=== PATIENT | female | born 1985 | race Caucasian/White ===

== ENCOUNTER 2020-03-04 07:35 | Outpatient (REF) | payer OTHER, SELFPAY ==
[2020-03-04 11:39] LABS: Anion Gap 11 (12-20); Blood Urea Nitrogen 11 mg/dL (9-16); Calcium 8.6 mg/dL (8.4-10.2); Carbon Dioxide 25 mmol/L (22-29); Chloride 108 mmol/L (96-108); Estimated Glomerular Filt Rate > 60; Glucose Random 90 mg/dL (60-115); Potassium 4.1 mmol/l (3.3-5.1); Sodium 140 mmol/L (135-145)
[2020-03-06 20:42] LABS: TS Negative Control Passed; TS Panel A 0; TS Panel B 0; TS Positive Control Passed; TSpotTB Negative (SeeBelow)
== END 2020-03-04 07:36 | disposition home or self-care (01) ==
LOC: HO.HMGCLDS 07:35
PROVIDERS: PCP Nurse Practitioner Family; Visit Provider Internal Medicine
DX: B35.3 Tinea pedis (principal); Z11.1 Encounter for screening for respiratory tuberculosis
CPT/HCPCS: 36415; 80048; 86481

== ENCOUNTER 2020-04-28 08:08 | Outpatient (REF) | payer OTHER, SELFPAY ==
[2020-04-29 09:18] LABS: BV Int Neg Control Negative (Negative); BV Int Pos Control Positive (Positive)
[2020-04-29 16:02] LABS: C. trachomatis RNA TMA NOT DETECTED (NOT DETECTED); N. gonorrhoeae RNA TMA NOT DETECTED (NOT DETECTED)
[2020-05-02 12:07] LABS: HPV mRNA E6/E7 rflx Not Detected (Not Detected)
== END 2020-04-28 08:09 | disposition home or self-care (01) ==
LOC: HO.LAB 08:08
PROVIDERS: PCP Nurse Practitioner Family; Visit Provider Obstetrics & Gynecology
DX: N93.9 Abnormal uterine and vaginal bleeding, unspecified (principal); R53.83 Other fatigue; R42 Dizziness and giddiness; N91.2 Amenorrhea, unspecified; Z12.4 Encounter for screening for malignant neoplasm of cervix; Z11.3 Encounter for screening for infections with a predominantly sexual mode of transmission
CPT/HCPCS: 36415; 58100; 87480; 87491; 87510; 87591; 87624; 87660; 88142; 88305; 99202

== ENCOUNTER 2020-05-20 06:48 | Outpatient (REF) | payer OTHER, SELFPAY ==
[2020-05-20 08:17] LABS: MANUAL DIFF FLAG NO
[2020-05-20 08:36] LABS: Basophils Percent Auto 0.3 % (0-2); Eosinophils Absolute Auto 0.1 X10*3/uL (0.0-0.4); Eosinophils Percent Auto 1.7 % (0-4); Hematocrit 43.3 % (37-47); Hemoglobin 14.4 g/dl (12.0-16.0); Imm Gran Abs Auto 0.01 X10*3/uL (0.00-0.03); Imm Gran Pct Auto 0.2 % (0.0-0.4); Lymphocytes Absolute Auto 1.8 X10*3/uL (1.2-4.9); Lymphocytes Percent Auto 28.2 % (20-40); Mean Corpuscular HGB Conc 33.3 g/dl (31.0-35.0); Mean Corpuscular Hemoglobin 29.7 pg (27.0-33.0); Mean Corpuscular Volume 89.3 fL (80-98); Mean Platelet Volume 11.7 fL (9.4-12.3); Monocytes Absolute Auto 0.5 X10*3/uL (0.1-1.2); Monocytes Percent Auto 7.6 % (2-11); Platelet Count 255 X10*3/uL (160-400); Red Blood Count 4.85 X10*6/uL (4.20-5.50); Red Cell Distribution Width 12.5 % (11.0-16.0); White Blood Count 6.5 X10*3/uL (4.8-10.8)
[2020-05-20 09:07] LABS: TSH reflex Free T4 3.51 uIU/mL (0.32-4.0)
[2020-05-21 07:02] LABS: Follicle Stimulating Hormone 7.9 mIU/mL; Prolactin 20.5 ng/mL
[2020-05-21 09:45] LABS: CT PCR NOT DETECTED (Not Detect.); NG PCR NOT DETECTED (Not Detect.)
[2020-05-22 17:51] LABS: TS Negative Control Passed; TS Panel A 0; TS Panel B 0; TS Positive Control Passed; TSpotTB Negative (SeeBelow)
== END 2020-05-20 06:49 | disposition home or self-care (01) ==
LOC: HO.LAB 06:48
PROVIDERS: Internal Medicine; PCP Nurse Practitioner Family; Visit Provider Obstetrics & Gynecology
DX: N93.9 Abnormal uterine and vaginal bleeding, unspecified (principal); N91.2 Amenorrhea, unspecified; Z11.1 Encounter for screening for respiratory tuberculosis; Z11.3 Encounter for screening for infections with a predominantly sexual mode of transmission
CPT/HCPCS: 36415; 83001; 84146; 84443; 85025; 86481; 87491; 87591

== ENCOUNTER → 2020-05-26 12:01 | Outpatient (BNVA) | payer OTHER, SELFPAY | PROVIDERS: Visit Provider Obstetrics & Gynecology | DX: N93.9 Abnormal uterine and vaginal bleeding, unspecified (principal); Z12.4 Encounter for screening for malignant neoplasm of cervix; N91.2 Amenorrhea, unspecified; Z11.3 Encounter for screening for infections with a predominantly sexual mode of transmission; Z30.09 Encounter for other general counseling and advice on contraception | CPT/HCPCS: 99212 ==

== ENCOUNTER 2020-05-30 17:46 | Emergency (ER) | payer OTHER, SELFPAY ==
--- NOTE | ~2020-05-30 | CT_ITS ---
EXAMINATION: CT CERVICAL SPINE WITHOUT CONTRAST CLINICAL INFORMATION: Head trauma COMPARISON: None TECHNIQUE: Cervical spine was performed with reconstruction imaging performed at the acquisition workstation. This CT examination was performed using dose optimization techniques as appropriate, variously including the following: *Automated exposure control *Adjustment of mA and/or kV according to patient size (this includes techniques or standardized protocols for targeted exams where dose is matched to indication/reason for exam; i.e. extremities or head) *Use of iterative reconstruction technique DLP: 835 mGy-cm FINDINGS: There is slight reversal of usual cervical lordosis which is likely related to positioning. The vertebral bodies otherwise normally aligned There is no fracture or degenerative change. The surrounding soft tissues are normal. CT/CT cervical spine wo con IMPRESSION: Unremarkable examination.
--- NOTE | ~2020-05-30 | CT_ITS ---
EXAMINATION: CT HEAD WITHOUT CONTRAST CLINICAL INFORMATION: Head trauma COMPARISON: None TECHNIQUE: Contiguous axial imaging was performed from the skull base to vertex without intravenous administration of contrast. This CT examination was performed using dose optimization techniques as appropriate, variously including the following: *Automated exposure control *Adjustment of mA and/or kV according to patient size (this includes techniques or standardized protocols for targeted exams where dose is matched to indication/reason for exam; i.e. extremities or head) *Use of iterative reconstruction technique DLP: 833 mGy-cm FINDINGS: CT HEAD: There is no evidence of acute intracranial hemorrhage or territorial infarction. No abnormal mass effect or midline shift is seen. Barroso to white matter differentiation is well preserved. No extra-axial fluid collections are identified. The ventricles are normal in size. There is no abnormal attenuation within the brain parenchyma. The osseous structures and soft tissues are normal. The mastoid air cells and visualized portions of the paranasal sinuses are well aerated. CT cervical spine: CT/CT head/brain wo con IMPRESSION: No acute intracranial pathology.
[2020-05-30 17:49] VITALS: BP 128/67; PULSE 78; RESP 17; TEMP 36.7; O2SAT 97; BMI 43.4
--- NOTE | 2020-05-30 18:33 | ED_ITS ---
HPI - Fall General Chief Complaint: Fall Stated Complaint: fall - head injury Source: patient Mode of arrival: ambulatory Limitations: no limitations History of Present Illness HPI Narrative: 34-year-old female past medical history obesity, menorrhagia, and allergies presents with injury sustained with from fall. Patient was wrestling with her son, fell backwards and hit the back of her head directly onto the lidya or. She states that she is having a difficult time opening and closing her jaw, has a headache and ear pain and describes no other symptoms. She denies loss of consciousness, dizziness, lightheadedness, changes in vision, nausea, vomiting, loss of balance, weakness, chest pain or pressure, palpitations, shortness breath, and edema. MD complaint: fall Onset (ago): hour(s) (Within the hour of arrival) Fall from: standing Fall witnessed: yes, by family Place fall occurred: home Loss of consciousness: none Symptoms prior to fall: none Context: tripped/slipped Location of injury: head Severity: moderate Severity scale (1-10): 6 Quality: aching Associated symptoms (after fall): headache Related Data Home Medications Medication Instructions Recorded Confirmed lamotrigine 25 mg tablet 0 mg PO 11/26/19 04/13/20 hydroxyzine pamoate 25 mg capsule 0 mg PO 12/11/19 04/13/20 lamotrigine 100 mg tablet 100 mg PO BEDTIME 12/11/19 04/13/20 betamethasone dipropionate 0.05 % TOPICAL BID PRN 04/13/20 04/13/20 lotion ketoconazole 2 % shampoo TOPICAL 04/13/20 04/13/20 Previous Rx's Medication Instructions Recorded fluticasone propionate 50 1 spray INTRANASAL BID 30 Days #16 04/13/20 mcg/actuation nasal g spray,suspension montelukast 10 mg tablet 10 mg PO BEDTIME 90 Days #90 tab 04/13/20 metronidazole 500 mg tablet 500 mg PO BID 7 Days #14 tab 04/29/20 L norgest/E estradiol-E estrad 1 tab PO DAILY #182 ea 05/26/20 0.15 mg-30 mcg (84)/10 mcg(7) tabs,3mos Allergies Allergy/AdvReac Type Severity Reaction Status Date / Time No Known Allergies Allergy Verified 04/28/20 08:15 [No Known Allergies*] Review of Systems Review of Systems: Constitutional: Positive headache, No Fever, No Chills ENT/Mouth: Positive Ear Pain, No Hoarseness, No sore throat Eyes: No Eye Pain, No Swelling, No Redness, No Foreign Body Cardiovascular: No Chest Pain, No SOB Respiratory: No Cough, No Dyspnea Gastrointestinal: No Nausea, No Vomiting, No Diarrhea, No abdominal Pain Genitourinary: No Dysuria, No Hematuria Musculoskeletal: positive jaw pain, No Myalgias, No Joint Swelling Skin: No Skin lacerations, No rash Neuro: No Weakness, No Numbness, No Paresthesias, No Loss of Consciousness, No Dizziness, No Headache Psych: No Anxiety/Panic, No Depression Heme/Lymph: no easy bruising, no Lymphadenopathy Endocrine: No Polyuria, No Polydipsia Yes all other systems are reviewed and are negative FOR[facility]LY [facility] Past Medical History Attestation statement: The following information was validated with the patient. Source: old records reviewed Medical History Acute bilateral low back pain with left-sided sciatica Depression Lumbago with sciatica, left side Nerve root compression Surgical History History of cholecystectomy Family History Family History Father No problems noted. Mother No problems noted. Maternal Grandmother No problems noted. Paternal Grandmother Thyroid disease HTN (hypertension) High cholesterol Paternal Grandfather Stroke Brother No problems noted. Brother No problems noted. Sister No problems noted. Sister No problems noted. Sister No problems noted. Son No problems noted. Paternal Aunt Stroke Social History Social History Alcohol intake: current Alcohol intake frequency: holidays/special occasions only Smoking Status: Never smoker Smoked in Last 30 Days: No Substance Use Type: Marijuana Advance Directives: No Sexual orientation: Lesbian/Gonzalez/Homosexual Gender identity: female Physical Exam Vital Signs: Vital Signs: Last Vital Signs Temp 98.1 F 05/30/20 17:49 Pulse 78 05/30/20 17:49 Resp 17 05/30/20 17:49 BP 128/67 05/30/20 17:49 Pulse Ox 97 05/30/20 17:49 Body Mass Index 43.4 Appearance: Alert. Oriented X3. No acute distress. Head: Normal external exam. Normocephalic. Atraumatic. No Chávez signs noted. No raccoon eyes noted Eyes: PERRLA. EOMI. No nystagmus, conjunctiva and sclera normal. Eyelids normal. ENT: TM's Normal. Pharynx normal. Uvula midline. Moist mucous membranes. No trismus noted. No drooling noted. No muffled voice noted. No TMJ tenderness, or clicking. No broken teeth, bite jaime inside the cheeks or tongue. Neck: Normal inspection. Neck supple. No adenopathy. Thyroid Normal. No meningeal signs. No neck mass noted. No tenderness to vertebral palpation. CVS: Normal heart rate and rhythm. Heart sound normal. No murmurs noted. Pulses equal to all extremities. Respiratory: No respiratory distress. Painless inspiration. Breath sounds norm al. No wheezes/rales/rhonchi noted. Chest nontender. No accessory muscle usage noted or decreased air movement noted. Abdomen: Soft and nontender. Bowel sounds normal in all 4 quadrants. No distenti on noted. No organomegaly noted. No visible injury noted. Back: No CVA tenderness. Full range of motion noted. Skin: Skin warm and dry. Normal skin color. Normal skin turgor. No rashes/lesions/lacerations noted. Extremities: No lower extremity edema. Extremities exhibit normal range of motion. Extremities nontender. Neuro: cranial nerves 2-12 intact, no focal neural deficits, strength 5/5 to all extremities, No motor deficit. No sensory deficit. Course Course Course Narrative: 34-year-old female presents with head and jaw pain after injury sustained from fall. Patient's physical exam is normal, cranial nerves 2-12 intact, PERRLA EOMI, no pain on extraocular movements, panic membranes intact. No visible injuries noted to oropharyngeal area, no broken teeth, no TMJ clicking or slipping, strength 5/5 to neck against resistance, no vertebral tenderness throughout the entire spine, no step-offs. Patient is concerned about internal injuries, will order a CT scan of the head and cervical spine. Risks and benefits of the exam discussed. CT scan pending. CT scan negative for acute findings requiring emergent intervention. No indication of jaw injury or fracture. Plan of care is to discharge home with concussive protocol. Patient verbalized understanding of and agrees to plan of care discharge home. MDM - Fall Differential Diagnosis Differential diagnosis: Likely fracture, compression fracture and concussion without loss of consciousness Medical Records Attestation: I reviewed the patient's medical records. Imaging Data CT head cervical spine: Attestation: I personally reviewed and interpreted this imaging study as follows: Radiologist's impression: EXAMINATION: CT CERVICAL SPINE WITHOUT CONTRAST CLINICAL INFORMATION: Head trauma COMPARISON: None TECHNIQUE: Cervical spine was performed with reconstruction imaging performed at the acquisition workstation. This CT examination was performed using dose optimization techniques as appropriate, variously including the following: *Automated exposure control *Adjustment of mA and/or kV according to patient size (this includes techniques or standardized protocols for targeted exams where dose is matched to indication/reason for exam; i.e. extremities or head) *Use of iterative reconstruction technique DLP: 835 mGy-cm FINDINGS: There is slight reversal of usual cervical lordosis which is likely related to positioning. The vertebral bodies otherwise normally aligned There is no fracture or degenerative change. The surrounding soft tissues are normal. CT/CT cervical spine wo con IMPRESSION: Unremarkable examination. Discharge Plan Discharge Clinical Impression: Concussion Qualifiers: Encounter type: initial encounter Loss of consciousness presence/duration: without LOC Qualified Code(s): S06.0X0A - Concussion without loss of consciousness, initial encounter Patient Disposition: Home, Self-Care Instructions: Concussion (ED), Post Concussion Syndrome (ED) Additional Instructions: You were evaluated for injury sustained from a fall. Your CT scan of head and cervical spine are negative for acute findings. They did not find any injury or fracture to the jaw. If pain persists please follow-up with a dentist. Your symptoms are highly suspicious for concussion. Please follow-up post concussive protocol. Take Tylenol as needed for pain management. Follow-up with primary care physician within the next week. Thank you for choosing this emergency department for evaluation. Please follow-up with primary care physician as needed. Return to the emergency department for any new, concerning, or worsening symptoms. Prescriptions: No Action metronidazole [Flagyl] 500 mg tablet 500 mg PO BID 7 Days Qty: 14 RF: 0 betamethasone dipropionate 0.05 % lotion topical BID PRN (Reason: itch) RF: 0 ketoconazole 2 % shampoo topical RF: 0 montelukast 10 mg tablet 10 mg PO BEDTIME 90 Days Qty: 90 RF: 0 fluticasone propionate 50 mcg/actuation spray,suspension 1 spray intranasal BID 30 Days Qty: 16 RF: 3 lamotrigine 25 mg tablet 0 mg PO RF: 0 hydroxyzine pamoate 25 mg capsule 0 mg PO RF: 0 lamotrigine 100 mg tablet 100 mg PO BEDTIME RF: 0 L norgest/e.estradiol-e.estrad [Seasonique] 0.15 mg-30 mcg (84)/10 mcg (7) tablets,dose pack,3 month 1 tab PO DAILY Qty: 182 RF: 3 Interventions: ED Discharge Assessment Last Done: 05/30/20 20:10 Discharge Date/Time: 05/30/20 20:12
== END 2020-05-30 20:12 | disposition home or self-care (01) ==
PROVIDERS: Emergency Provider Emergency Medicine; PCP Nurse Practitioner Family
DX: R51.9 Headache, unspecified (principal); S06.0X0A Concussion without loss of consciousness, initial encounter; W01.0XXA Fall on same level from slipping, tripping and stumbling without subsequent striking against object, initial encounter; Y93.83 Activity, rough housing and horseplay; Y92.019 Unspecified place in single-family (private) house as the place of occurrence of the external cause; Y99.9 Unspecified external cause status
CPT/HCPCS: 70450; 72125; 99284

== ENCOUNTER → 2020-07-05 09:50 | Outpatient (BNVA) | payer OTHER, SELFPAY | PROVIDERS: PCP Nurse Practitioner Family; Visit Provider Obstetrics & Gynecology | DX: R23.2 Flushing (principal); N93.9 Abnormal uterine and vaginal bleeding, unspecified | CPT/HCPCS: 99212 ==

== ENCOUNTER 2020-07-15 13:31 | Outpatient (REF) | payer OTHER, SELFPAY ==
--- NOTE | ~2020-07-15 | US_ITS ---
EXAMINATION: US VENOUS ULTRASOUND WITH DOPPLER LOWER EXTREMITY, RIGHT CLINICAL INFORMATION: Right lower extremity pain. COMPARISON: None TECHNIQUE: Ultrasound of the deep veins is performed from the hip to the calf with compression sonography and color and pulse Doppler assessment. Spectral analysis with color-flow imaging is performed. FINDINGS: There is normal venous compression and respiratory variation and augmented flow. The visualized common femoral vein, superficial femoral vein, profunda femoral vein, popliteal vein, and the trifurcation region shows no evidence of deep venous thrombosis. There is no significant popliteal fossa cyst. If the patient's symptoms persist, followup ultrasound in 5 days 7 days might be of value to exclude proximal propagation from a non-visualized calf vein. US/US venous duplex LE RT IMPRESSION: No DVT demonstrated in the right lower extremity.
== END 2020-07-15 13:32 | disposition home or self-care (01) ==
LOC: HO.HMGCX 13:31
PROVIDERS: PCP Nurse Practitioner Family; Visit Provider Nurse Practitioner Family
DX: M79.661 Pain in right lower leg (principal)
CPT/HCPCS: 93971

== ENCOUNTER → 2020-07-28 08:10 | Outpatient (BNVA) | payer OTHER, SELFPAY | PROVIDERS: PCP Nurse Practitioner Family; Visit Provider Surgery | DX: E66.01 Morbid (severe) obesity due to excess calories (principal); Z68.41 Body mass index [BMI] 40.0-44.9, adult | CPT/HCPCS: Q3014 ==

== ENCOUNTER 2020-08-18 09:10 | Outpatient (REF) | payer OTHER, SELFPAY ==
--- NOTE | ~2020-08-18 | XR_ITS ---
EXAMINATION: XR CHEST CLINICAL INFORMATION: Morbid obesity COMPARISON: 07/30/2015 TECHNIQUE: 2 views of the chest were obtained. FINDINGS: No focal consolidation, pulmonary edema, or pleural effusion. Stable cardiomediastinal silhouette. XR/XR chest 2V IMPRESSION: Unremarkable examination.
--- NOTE | ~2020-08-18 | FL_ITS ---
EXAMINATION: XR GI SERIES CLINICAL INFORMATION: Morbid severe obesity due to excess calories. COMPARISON: None TECHNIQUE: Routine upper GI air-contrast study was performed. FINDINGS: Following oral administration of thick barium and effervescent granules, there is normal propagation of bolus from the oral cavity through the pharynx, esophagus into stomach without any evidence of obstruction, narrowing or stricture. On placing patient supine and prone lying, the course, caliber and peristalsis of the stomach and duodenum are normal. The mucosal pattern and the duodenum, stomach and esophagus is normal. FLUOROSCOPY TIME: 1.6 minutes DOSE AREA PRODUCT: 51.215 uGy-m2 (microgray-meter squared) FL/FL upper GI series IMPRESSION: Unremarkable upper GI air-contrast study.
--- NOTE | ~2020-08-18 | US_ITS ---
EXAMINATION: US COMPLETE ABDOMEN WITH LIVER ELASTOGRAPHY CLINICAL INFORMATION: Severe obesity. COMPARISON: None. TECHNIQUE: Real-time imaging of the abdominal viscera. Noninvasive ultrasound liver fibrosis assessment is performed using Mohan ElastPQ point quantification shear wave elastography (pSWE) with a C5-2 MHz transducer. Multiple elastography samples are obtained. FINDINGS: PANCREAS: The visualized pancreatic head and body are normal in appearance. The remainder of the pancreas is obscured from visualization by the overlying bowel gas. ABDOMINAL AORTA: The proximal, middle, and distal aortic segments are normal in caliber. INFERIOR VENA CAVA: Visualized portions are normal. LIVER: Normal. The liver demonstrates normal size, contour and echogenicity. No focal lesion or intrahepatic biliary duct dilatation. The right lobe measures 18.3 cm in length. The left lobe measures 10.5 cm in length. Portal flow is hepatopedal. Shear wave liver elastography median stiffness is 2.5 m/s (reference: normal median stiffness is 1.3 m/s or less). IQR/median stiffness to assess sampling precision is 0.43 (reference: good quality data set is IQR/median stiffness of 0.15 or less). GALLBLADDER: Normal. The gallbladder is physiologically distended without evidence of stones, sludge, polyps, wall thickening or pericholecystic fluid. COMMON BILE DUCT: Common bile duct is not seen. RIGHT KIDNEY: Normal. No hydronephrosis. No renal calculi or focal parenchymal lesions. The kidney measures 11.6 cm in maximum dimension. LEFT KIDNEY: Normal. No hydronephrosis. No renal calculi or focal parenchymal lesions. The kidney measures 11.6 cm in maximum dimension. SPLEEN: Normal. The spleen measures 11.7 cm in maximum dimension. FREE FLUID: None. US/US abdomen comp w elastography IMPRESSION: 1. Diffuse hepatic steatosis without focal lesion. Rest of the abdominal ultrasound is unremarkable. 2. Liver elastography: Elevated median liver stiffness of 2.50 m/s. However due to patient's body habitus the sampling is suboptimal. REFERENCE: Society of Radiologists in Ultrasound Liver Stiffness Thresholds (2020): LIVER STIFFNESS THRESHOLDS: *Liver Stiffness equal or less than 1.3 m/s: High probability of being normal. *Liver Stiffness less than 1.7 m/s: In the absence of other known clinical signs, rules out compensated advanced chronic liver disease. *Liver Stiffness 1.7-2.1 m/s: Suggestive of compensated advanced chronic liver disease but need further test for confirmation. *Liver Stiffness over 2.1 m/s: Rules in compensated advanced chronic liver disease. *Liver Stiffness over 2.4 m/s: Suggestive of clinically significant portal hypertension. QUALITY OF DATA SET: *IQR/Median value equal or less than 0.15 implies a quality data set. *IQR/Median value over 0.15 implies a poor quality data set. SIGNIFICANT CHANGE FROM PRIOR EXAM: Significant change if liver stiffness measurement is 10% or greater from prior exam. OTHER CONSIDERATIONS: The stage of liver fibrosis may be overestimated in the setting of acute hepatitis, liver inflammation, elevated liver function tests, hepatic vascular congestion, obstructive cholestasis, non-fasting state, and infiltrative diseases such as amyloidosis and lymphoma. In some patients with NAFLD, the liver stiffness thresholds for compensated advanced chronic liver disease may be lower. In causes other than viral hepatitis and NAFLD, liver stiffness thresholds are not well established.
== END 2020-08-18 09:11 | disposition home or self-care (01) ==
LOC: HO.US 09:10
PROVIDERS: Visit Provider Surgery
DX: Z01.818 Encounter for other preprocedural examination (principal); E66.01 Morbid (severe) obesity due to excess calories; K21.9 Gastro-esophageal reflux disease without esophagitis
CPT/HCPCS: 71046; 74240; 76705; 76981

== ENCOUNTER → 2020-08-19 08:06 | Outpatient (BNVA) | payer OTHER, SELFPAY | PROVIDERS: PCP Nurse Practitioner Family; Visit Provider Dietitian, Registered | DX: E66.01 Morbid (severe) obesity due to excess calories (principal); Z68.41 Body mass index [BMI] 40.0-44.9, adult | CPT/HCPCS: 97802 ==

== ENCOUNTER → 2020-09-03 07:22 | Outpatient (BNVA) | payer OTHER, SELFPAY | PROVIDERS: Visit Provider Surgery | DX: E66.01 Morbid (severe) obesity due to excess calories (principal); Z68.41 Body mass index [BMI] 40.0-44.9, adult | CPT/HCPCS: 99212 ==

== ENCOUNTER → 2020-09-06 08:10 | Outpatient (BNVA) | payer OTHER, SELFPAY | PROVIDERS: PCP Nurse Practitioner Family; Visit Provider Dietitian, Registered ==

== ENCOUNTER → 2020-10-04 08:07 | Outpatient (BNVA) | payer OTHER, SELFPAY | PROVIDERS: PCP Nurse Practitioner Family; Visit Provider Dietitian, Registered ==

== ENCOUNTER → 2021-03-09 13:40 | Outpatient (BNVA) | payer OTHER, SELFPAY | PROVIDERS: PCP Nurse Practitioner Family; Referring Provider Nurse Practitioner Family; Visit Provider Physician Assistant Surgical ==

== ENCOUNTER → 2021-04-25 08:09 | Outpatient (BNVA) | payer OTHER, SELFPAY | PROVIDERS: PCP Nurse Practitioner Family; Visit Provider Surgery | DX: Z13.89 Encounter for screening for other disorder (principal) | CPT/HCPCS: Q3014 ==

== ENCOUNTER → 2021-05-18 08:10 | Outpatient (BNVA) | payer OTHER, SELFPAY | PROVIDERS: PCP Nurse Practitioner Family; Visit Provider Dietitian, Registered | DX: E66.01 Morbid (severe) obesity due to excess calories (principal); Z71.3 Dietary counseling and surveillance | CPT/HCPCS: 97803 ==

== ENCOUNTER 2023-06-07 11:26 | Outpatient (AMB) | payer OTHER, SELFPAY ==
--- NOTE | 2023-06-07 11:41 | MHC.PC.OV ---
Vital Signs 06/07/23 11:45 Height 5 ft 9 in Weight 279 lb BMI 41.2 BP 122/80 Blood Pressure Location Lt brachial Position Sitting Pulse 68 Pulse Source Pulse Oximeter Pulse Oximetry (%) 98 Oxygen Delivery Method Room Air Intake Visit Reasons: Fungus Left Big Toe Intake Note: Patient here for left big toe pain/redness, she states she went to the nail salon and was cut while getting a pedicure Allergies dog dander Allergy (Severe, Verified 06/07/23 12:57) Sneezing Medication List - Last Reconciled 06/07/23 by BRINA Vasquez-SAM ketoconazole 2% 1 appl topical 2XW Tobacco use date assessed: 06/07/23 Dental Screening Dental Screen Date: 06/07/23 Did you have a dental visit in the last 12 months?: No Did you have a dental problem in the last 6 months where you did not have access to dental care?: No Was dental information given to patient?: No HPI Fungus Left Big Toe HPI Details Pt reports dryness and flaking of her scalp. She saw a jigger operator previously and was given ketoconazole shampoo which worked well. Will send this. Denies fever, chills, and dizziness. Pt ? right big toenail fungus. [facility] Medical History (Updated 06/07/23 @ 13:00 by BRINA Vasquez-SAM) Disc herniation Depression Nerve root compression Lumbago with sciatica, left side Acute bilateral low back pain with left-sided sciatica Surgical History (Updated 05/15/23 @ 17:23 by BRINA Vasquez-SAM) S/P gastric sleeve procedure Hx of cholecystectomy History of cholecystectomy Family History (Updated 01/27/21 @ 08:34 by Susan Ngo [facility]) Father No problems noted. Mother No problems noted. Maternal Grandmother No problems noted. Paternal Grandmother Thyroid disease HTN (hypertension) High cholesterol Mental health disorder Paternal Grandfather Stroke Brother No problems noted. Brother No problems noted. Sister No problems noted. Sister No problems noted. Sister No problems noted. Son No problems noted. Paternal Aunt Stroke Social History (Updated 04/21/21 @ 15:53 by Annelise De Anda LPN) Housing: Apartment Alcohol intake: current Alcohol intake frequency: holidays/special occasions only Patient Tobacco Use Status: Never used Tobacco Substance Use Type: Marijuana service: No Current occupational status: unemployed Sexual orientation: Lesbian/Gonzalez/Homosexual Gender identity: Female Cognitive needs: No Hearing needs: No Vision needs: Yes Questionnaire PHQ-9 Over the last 2 weeks, how often have you been bothered by any of the following problems? 1. Little interest or pleasure in doing things: several days 2. Feeling down, depressed, or hopeless: several days 3. Trouble falling or staying asleep, or sleeping too much: not at all 4. Feeling tired or having little energy: several days 5. Poor appetite or overeating: not at all 6. Feeling bad about yourself - or that you are a failure or have let yourself or your family down: not at all 7. Trouble concentrating on things, such as reading the newspaper or watching television: not at all 8. Moving or speaking so slowly that other people could have noticed. Or the opposite - being so fidgety or restless that you have been moving around a lot more than usual: not at all 9. Thoughts that you would be better off or of hurting yourself in some way: not at all Total score: 3 Depression Screening Interpretation: Negative Depression Screening Done: Yes [id number] - PHQ-9 Billing: Yes Source: Developed by Drs. Malik Bustos, Latoya Pedro, Sami Rock and colleagues, with an educational lior from [employer]. Thrive Questionnaire Date Thrive assessed: 06/07/23 I am a: Patient What is your living situation today?: I have a steady place to live Within the past 12 months, did the food you bought not last and you didn't have the money to get more?: Never true Within the past 12 months, did you worry whether your food would run out before you got money to buy more?: Never true Do you have trouble paying for medicines?: No Do you have trouble getting transportation to medical appointments?: No Do you have trouble paying your heating and electricity bill?: No Do you have trouble taking care of your child, family member or friend?: No Do you have trouble with day-to-day activities such as bathing, preparing meals, shopping, managing finances, etc.?: No Are you currently unemployed and looking for a job?: No Are you interested in more education?: No Currently or been in a relationship where the following occur: I choose not to answer this question THRIVE Score: 0 AUDIT C Alcohol Use Questionnaire (AUDIT-C) 1. How often do you have a drink containing alcohol?: Never 3. How often do you have six or more drinks on one occasion?: Never Total Score: 0 Score Reviewed/Action Taken: No ROBIN-7 AMB Questionnaire ROBIN-7 Date ROBIN - 7 assessed: 06/07/23 Feeling nervous, anxious, or on edge: 1 = Several days Not being able to stop or control worryin = Not at all Worrying too much about different things: 1 = Several days Trouble relaxin = Not at all Being so restless that it is hard to sit still: 0 = Not at all Becoming easily annoyed or irritable: 1 = Several days Feeling afraid as if something awful might happen: 0 = Not at all Total ROBIN-7 score (0-4 normal; 5-9 mild; 10-14 moderate; 15-21 severe): 3 Source: Developed by Drs. Malik Bustos, Latoya Pedro, Sami Rock and colleagues, with an educational lior from [employer]. ROBIN-7 Assessment Billing ROBIN-7 Assessment Tool: ROBIN-7 Assessment 35761 Review of Systems Const Reports as per HPI Physical exam (Primary Care) Vital Signs: Last Vital Signs Pulse 68 06/07/23 11:45 BP 122/80 06/07/23 11:45 Pulse Ox 98 06/07/23 11:45 Oxygen Delivery Method Room Air 06/07/23 11:45 BMI result Body Mass Index 41.2 Tobacco/Smoking Status: Tobacco use Status Tobacco use date assessed 06/07/23 06/07/23 11:48 Patient Tobacco Use Status Never used Tobacco 06/07/23 11:42 PHQ-9: PHQ-9 Score PHQ-9: Total score 3 06/07/23 12:18 Depression Screening Interpretation: Negative Thrive Assessment: Date of Thrive Assessment Date Thrive assessed 06/07/23 06/07/23 11:56 Currently or been in a relationship where the following occur: I choose not to answer this question Const General: cooperative Nutritional Appearance: obese Orientation/consciousness: patient oriented x3 Resp Effort & Inspection: normal respiratory effort Auscultation: clear to auscultation bilaterally Cardio Rate: regular rate Rhythm: regular rhythm Heart sounds: S1 normal heart sound present and S2 normal heart sound present Skin Other: dryness and flaking to scalp Neuro General: patient oriented x3 Extrem Other: right big toenail without discoloration, does not appear brittle, no surrounding erythema Psych Appearance: grossly normal Mental Status: mental status grossly normal Speech and movement: Normal speech and movement present Affect: normal affect Attitude: cooperative Thought process: Normal thought process present Thought content: Normal thought content present Insight: Good insight present (Psych) Judgement: Good judgement present (Psych) Assessment and Plan Assessment & Plan (1) Dandruff: Code(s): L21.0 - Seborrhea capitis Plan The patient agreed to the use of a medical technologist chemistry for this encounter. Scribed for GARY Donovan by Rebecca Thurston medical technologist chemistry, on 06/07/2023 at 12:15 EST. Medications: New ketoconazole 2% 1 appl topical 2XW 120 mL 3RF Coding Level of Care Code Est Pt Level 3 (09410) Diagnoses Dandruff L21.0 Additional Codes ROBIN-7 Assessment Billing - ROBIN-7 Assessment Tool: ROBIN-7 Assessment 22151 ([id number])
[2023-06-07 11:45] VITALS: BP 122/80; PULSE 68; O2SAT 98; BMI 41.2
== END 2023-06-07 12:41 | disposition home or self-care (01) ==
PROVIDERS: PCP Nurse Practitioner Family; Visit Provider Nurse Practitioner Family
DX: L21.0 Seborrhea capitis (principal)
CPT/HCPCS: 99213

== ENCOUNTER 2023-10-20 09:38 | Outpatient (REF) | payer OTHER, SELFPAY ==
--- NOTE | ~2023-10-20 | XR_ITS ---
EXAMINATION: XR FOOT, LEFT CLINICAL INFORMATION: Left foot pain COMPARISON: None available. TECHNIQUE: AP, lateral, and oblique views of the left foot. FINDINGS: No fracture or malalignment. Bone mineralization is normal. There is a chronically avulsed 9 mm osseous fragment anterior to the lateral malleolus. Small enthesopathic spurs are present at the Achilles tendon insertion and plantar fascial origin on the calcaneus. Joint spaces appear relatively well-preserved. No erosions. XR/XR foot LT min 3V IMPRESSION: 1. No acute osseous findings in the left foot. 2. Chronically avulsed 9 mm osseous fragment anterior to the lateral malleolus corresponding to an old fracture at the anterior talofibular ligament attachment. Electronically signed by: Vivek Clay MD 10/26/2023 09:37 AM EDT
== END 2023-10-20 09:39 | disposition home or self-care (01) ==
LOC: HO.HMGCX 09:38
PROVIDERS: PCP Nurse Practitioner Family; Visit Provider Nurse Practitioner Family
DX: M79.672 Pain in left foot (principal)
CPT/HCPCS: 73630

== ENCOUNTER 2023-11-14 08:25 | Outpatient (AMB) | payer OTHER, SELFPAY ==
--- NOTE | 2023-11-14 07:14 | MHC.OFFVIS ---
Intake Visit Reasons: Discuss weight loss med Allergies dog dander Allergy (Severe, Verified 11/14/23 07:20) Sneezing HPI HPI Discuss weight loss med: Details: left foot pain, seeing ortho. Pt also had the gastric sleeve procedure in april of 2023, plateaued as of recently, partially because of her limited activity due to her foot issue. She has met with her bariatric team, and they encouraged a GLP-1 agonist. Side effects went over with the pt, BMI is clearly elevated still (41.2 during last spring). Insurance coverage of GLP-1 agonist verified [facility] Medical History (Updated 11/14/23 @ 07:19 by Leonard Johnson, [facility]-) Disc herniation Depression Nerve root compression Lumbago with sciatica, left side Acute bilateral low back pain with left-sided sciatica Surgical History (Updated 05/15/23 @ 17:23 by VICKIE VasquezP-) S/P gastric sleeve procedure Hx of cholecystectomy History of cholecystectomy Family History (Updated 01/27/21 @ 08:34 by Susan Ngo [facility]) Father No problems noted. Mother No problems noted. Maternal Grandmother No problems noted. Paternal Grandmother Thyroid disease HTN (hypertension) High cholesterol Mental health disorder Paternal Grandfather Stroke Brother No problems noted. Brother No problems noted. Sister No problems noted. Sister No problems noted. Sister No problems noted. Son No problems noted. Paternal Aunt Stroke Social History (Updated 04/21/21 @ 15:53 by Annelise De Anda LPN) Housing: Apartment Alcohol intake: current Alcohol intake frequency: holidays/special occasions only Patient Tobacco Use Status: Never used Tobacco Substance Use Type: Marijuana service: No Current occupational status: unemployed Sexual orientation: Lesbian/Gonzalez/Homosexual Gender identity: Female Cognitive needs: No Hearing needs: No Vision needs: Yes Telehealth Telehealth Telehealth Platform: [facility] Location of provider rendering services: practice address Location of patient: address on file Patient Identification confirmed using: Name, : Yes Telehealth method: video Patient verbally consented to treatment: Yes Patient verbally consented to billing insurance company: Yes Patient informed of any privacy concerns related to visit: Yes Minutes spent on Phone/Video with Pt.: 10 Assessment & Plan Assessment & Plan (1) Left foot pain: Code(s): M79.672 - Pain in left foot Category: Medical Plan: GLP-1 agonist sent (2) Obesity: Code(s): E66.9 - Obesity, unspecified Category: Medical Plan: GLP-1 agonist sent Medications: New tirzepatide (weight loss) (Zepbound) for 4 weeks 2.5 mg (0.5 mL) subcut QWEEK 2 mL 0RF Coding Level of Care Code Tele Est Pt Level 3 (71969) Diagnoses Left foot pain M79.672 Obesity E66.9
== END 2023-11-14 09:53 | disposition home or self-care (01) ==
LOC: HO.HMCC 08:25
PROVIDERS: PCP Nurse Practitioner Family; Visit Provider Nurse Practitioner Family
DX: M79.672 Pain in left foot (principal); E66.9 Obesity, unspecified; Z68.41 Body mass index [BMI] 40.0-44.9, adult

== ENCOUNTER → 2023-11-14 08:25 | Outpatient (BNVA) | payer OTHER, SELFPAY | PROVIDERS: PCP Nurse Practitioner Family; Visit Provider Nurse Practitioner Family | DX: M79.672 Pain in left foot (principal); E66.9 Obesity, unspecified ==

== ENCOUNTER → 2023-11-19 10:28 | Outpatient (BNVA) | payer OTHER, SELFPAY | PROVIDERS: PCP Nurse Practitioner Family; Visit Provider Nurse Practitioner Family ==

== ENCOUNTER 2024-05-14 07:13 | Outpatient (AMB) | payer OTHER, SELFPAY ==
--- NOTE | 2024-05-14 07:40 | A.OFFPC_ITS ---
Intake Visit Reasons: weight loss Allergies dog dander Allergy (Severe, Verified 05/14/24 07:41) Sneezing Medication List - Last Reconciled 05/14/24 by BRINA Vasquez- betamethasone dipropionate 0.05% 1 appl topical DAILY PRN clotrimazole-betamethasone 1-0.05 % 1 appl topical BID 2 weeks ketoconazole 2% 1 appl topical 2XW tirzepatide (weight loss) 10 mg (0.5 mL) subcut QWEEK Tobacco use date assessed: 06/07/23 Dental Screening Dental Screen Date: 06/07/23 HPI weight loss HPI Details History of Present Illness The patient is a 38-year-old female presenting with concerns about loose skin and an associated skin rash/dermatitis. She has experienced a significant weight loss of approximately 120 pounds, leading to excessive loose skin predominantly around the abdominal area. This has resulted in skin irritation and tenderness beneath the folds, with a heightened risk for secondary infection. The rash is characterized as macular erythematous with slight excoriation, based on the visual inspection during the telehealth visit. The patient has not reported any symptoms indicative of an active infection, such as fever, chills, spreading erythema with warmth (cellulitis). She is managing the condition by maintaining dryness in the affected areas. Review of Systems - Integumentary: Reports loose skin, [place] rashes on abdominal folds. Denies active infection, cellulitis, fevers, and chills. Plan I will prescribe clotrimazole and betamethasone cream to treat the rash on the abdominal folds. The patient is also advised to consult with a plastic surgeon for evaluation of the loose skin if the condition continues to cause significant issues. Maintaining dryness in the affected areas is an important component of the current management plan. Discussion Notes During our discussion, I explained to the patient that the prescription of clotrimazole and betamethasone cream is aimed at managing the rash by addressing both fungal and inflammatory aspects. We reviewed the importance of keeping the skin dry to minimize irritation and reduce the risk of infection. I also recommended a plastic surgery evaluation to explore options for addressing the excess skin in a more permanent manner. The patient understands the recommendations and the rationale behind them. Patient Instructions - Apply the prescribed clotrimazole and betamethasone cream to the affected areas as directed. - Keep the areas underneath the skin fol ds as dry as possible. - Schedule a follow-up consultation with a plastic surgeon for evaluation of loose skin. - Monitor for any signs of infection suc h as increased redness, warmth, or unusual discharge and seek medical attention if these occur. [facility] Medical History Disc herniation Depression Nerve root compression Lumbago with sciatica, left side Acute bilateral low back pain with left-sided sciatica Surgical History S/P gastric sleeve procedure Hx of cholecystectomy History of cholecystectomy Family History Father No problems noted. Mother No problems noted. Maternal Grandmother No problems noted. Paternal Grandmother Thyroid disease HTN (hypertension) High cholesterol Mental health disorder Paternal Grandfather Stroke Brother No problems noted. Brother No problems noted. Sister No problems noted. Sister No problems noted. Sister No problems noted. Son No problems noted. Paternal Aunt Stroke Social History Housing: Apartment Alcohol intake: current Alcohol intake frequency: holidays/special occasions only Patient Tobacco Use Status: Never used Tobacco Substance Use Type: Marijuana service: No Current occupational status: unemployed Sexual orientation: Lesbian/Gonzalez/Homosexual Gender identity: Female Cognitive needs: No Hearing needs: No Vision needs: Yes Questionnaire Thrive Questionnaire Date Thrive assessed: 01/20/24 ROBIN-7 AMB Questionnaire ROBIN-7 Date ROBIN - 7 assessed: 06/07/23 Source: Developed by Drs. Malik Bustos, Latoya Pedro, Sami Rock and colleagues, with an educational lior from [employer]. Physical exam (Primary Care) Tobacco/Smoking Status: Tobacco use Status Tobacco use date assessed 06/07/23 11/03/23 08:45 Patient Tobacco Use Status Never used Tobacco 11/03/23 08:45 Thrive Assessment: Date of Thrive Assessment Date Thrive assessed 01/20/24 05/08/24 10:08 Coding Level of Care Code Tele Est Pt Level 3 (15196) Diagnoses Loose skin L98.7 Skin rash R21 Assessment & Plan Assessment & Plan (1) Loose skin: Code(s): L98.7 - Excessive and redundant skin and subcutaneous tissue Category: Medical (2) Skin rash: Comment: associated with loose skin/weight loss Code(s): R21 - Rash and other nonspecific skin eruption Category: Medical Plan . Orders: Referrals Plastic Surgery Referral L98.7 - Excessive and redundant skin and subcutaneous tissue, R21 - Rash and other nonspecific skin eruption Medications: New clotrimazole-betamethasone 1-0.05 % 1 appl topical BID 45 grams 0RF 2 weeks
== END 2024-05-14 08:21 | disposition home or self-care (01) ==
LOC: HO.HMCC 07:13
PROVIDERS: PCP Nurse Practitioner Family; Visit Provider Nurse Practitioner Family
DX: L98.7 Excessive and redundant skin and subcutaneous tissue (principal); R21 Rash and other nonspecific skin eruption

== ENCOUNTER → 2024-05-14 07:13 | Outpatient (BNVA) | payer OTHER, SELFPAY | PROVIDERS: PCP Nurse Practitioner Family; Visit Provider Nurse Practitioner Family ==

== ENCOUNTER → 2024-06-02 09:37 | Outpatient (BNVA) | payer OTHER, SELFPAY | PROVIDERS: PCP Nurse Practitioner Family; Visit Provider Nurse Practitioner Family | DX: Z13.89 Encounter for screening for other disorder (principal) ==

== ENCOUNTER → 2024-06-27 09:31 | Outpatient (BNVA) | payer MEDICARE, MEDICAID, SELFPAY | PROVIDERS: PCP Nurse Practitioner Family; Visit Provider Nurse Practitioner Family ==

== ENCOUNTER 2024-07-02 09:23 | Outpatient (AMB) | payer MEDICARE, MEDICAID, SELFPAY ==
[2024-07-02 09:24] VITALS: BP 128/80; PULSE 79; TEMP 37.2; O2SAT 98; BMI 31.5
--- NOTE | 2024-07-02 09:24 | AM.OFFWIN_ITS ---
Intake Vital Signs 07/02/24 09:24 Height 5 ft 9 in Weight 213 lb BMI 31.5 BP 128/80 Blood Pressure Location Lt brachial Position Sitting Pulse 79 Pulse Source Pulse Oximeter Temp 98.9 F Temp Source Oral Pulse Oximetry (%) 98 Intake Visit Reasons: EP STD testing & ? UTI Patient Tobacco Use Status: Never used Tobacco Allergies dog dander Allergy (Severe, Verified 07/02/24 09:24) Sneezing Medication List - Last Reconciled 07/02/24 by Hardik Arroyo MD betamethasone dipropionate 0.05% 1 appl topical DAILY PRN clotrimazole-betamethasone 1-0.05 % 1 appl topical BID 2 weeks ketoconazole 2% 1 appl topical 2XW tirzepatide (weight loss) 12.5 mg (0.5 mL) subcut QWEEK valacyclovir 2,000 mg (2 x 1 gram) PO Q12H 1 day Do you need a note to return to daycare/school/sports/work: Yes HPI HPI Comments History of Present Illness Details History of Present Illness - The patient is a 38-year-old female pr esenting with urinary symptoms post unprotected intercourse 5 days ago. - She experienced unusual urinary odor a fter unprotected intercourse followed by plan b usage, which persisted. - Accompanying symptoms included uncomfo rtableness with urination noted on the day of examination, resembling UTI pain, but without hematuria or fever. - Previous lower abdominal discomfort wa s described as beronica to premenstrual cramps. - Menstrual irregularities are reported, with recent cycles coming extremely late. - No abnormal vaginal discharge has been observed. Physical Exam General: Cooperative, healthy appearing, comfortable, no acute distress and well developed Orientation: Patient oriented x3 Limitations: No limitations Head: Normal to inspection Ears: Hearing grossly normal bilaterally Nose: Normal External nose present Face and sinus: Normal facial exam Eyes: Appearance normal, both eyes and all related structures Neck: Normal visual inspection and Yes full ROM Respiratory: Normal respiratory effort and able to speak in complete sentences. Skin: No rashes or lesions noted Neuro: Patient oriented x3 Extremities: Normal to inspection [facility] Medical History Disc herniation Depression Nerve root compression Lumbago with sciatica, left side Acute bilateral low back pain with left-sided sciatica Surgical History S/P gastric sleeve procedure Hx of cholecystectomy History of cholecystectomy Family History Father No problems noted. Mother No problems noted. Maternal Grandmother No problems noted. Paternal Grandmother Thyroid disease HTN (hypertension) High cholesterol Mental health disorder Paternal Grandfather Stroke Brother No problems noted. Brother No problems noted. Sister No problems noted. Sister No problems noted. Sister No problems noted. Son No problems noted. Paternal Aunt Stroke Social History Housing: Apartment Alcohol intake: current Alcohol intake frequency: holidays/special occasions only Patient Tobacco Use Status: Never used Tobacco Substance Use Type: Marijuana service: No Current occupational status: unemployed Sexual orientation: Lesbian/Gonzalez/Homosexual Gender identity: Female Cognitive needs: No Hearing needs: No Vision needs: Yes Review of Systems Const All systems reviewed & are unremarkable except as noted in HPI and below Physical Exam Vital Signs: Last Vital Signs Temp 98.9 F 07/02/24 09:24 Pulse 79 07/02/24 09:24 BP 128/80 07/02/24 09:24 Pulse Ox 98 07/02/24 09:24 BMI result Body Mass Index 31.5 Assessment & Plan Assessment & Plan (1) UTI (urinary tract infection): Code(s): N39.0 - Urinary tract infection, site not specified Qualifiers: Urinary tract infection type: acute cystitis Hematuria presence: without hematuria Qualified Code(s): N30.00 - Acute cystitis without hematuria Plan: Plan For the urinary symptoms suspected to be a urinary tract infection, I have prescribed cefuroxime and initiated urine culture to identify causative organis ms, allowing for future adjustments in antibiotic treatment if needed. Cefuroxime?s safety regarding potential was checked. I recommended voicemail adjustments for optimal result communication while preserving confidentiality. The plan adapts based on further symptomatic developments and STI findings. The patient refrained from testing for syphilis or HIV, as she considers the recent partner low-risk Patient was informed and verbally consented to the use of an ambient scribe for clinic note documentation during this visit. (2) At risk for sexually transmitted disease due to unprotected sex: Code(s): Z91.89 - Other specified personal risk factors, not elsewhere classified Plan: With current pending chlamydia and gonorrhea tests, further STI-specific management will depend on results, alongside symptoms guiding any additional disease tests. Orders: Orders Urine Culture Today N39.0 - Urinary tract infection, site not specified Medications: New cefuroxime axetil 500 mg PO Q12H 10 tabs 0RF Coding Level of Care Code Est Pt Level 3 (66100) Diagnoses Acute cystitis without hematuria N30.00 Urinary tract infection type: acute cystitis Hematuria presence: without hematuria At risk for sexually transmitted disease due to unprotected sex Z91.89
--- OUTSIDE RECORDS SUMMARY | 2024-07-02 09:54 | XMS_ITS | Clinical Summary ---
Author Organization [facility] ity Address [address] [place] [address] Care Team Providers Care Infusion Rn Name Role Phone Valeria Garcia POLITICAL RESEARCH SCIENTIST Primary Care Provider [phone] Surgical History Surgery Date Site/Laterality Comments OTHER SURGICAL HISTORY PROCEDURE: DENIES PREVIOUS SURGERY Family History Medical History Relation Name Comments Blindness Maternal Grandmother Hypertension Paternal Grandmother Stroke Paternal Grandmother Cataracts Neg Hx Glaucoma Neg Hx Macular degeneration Neg Hx Strabismus Neg Hx Relation Name Status Comments Brother Alive asthma Father Alive healthy Maternal Grandmother Mother Alive ?PMH Paternal Grandmother Alive CVA, HT N Sister Alive healthy Social History Tobacco Use Types Packs/Day Years Used Date Smoking Tobacco: Never Alcohol Use Standard Drinks/Week Comments Yes 0 (1 standard drink = 0.6 oz pur e alcohol) Comments Unknown Sex and Gender Information Value Date Recorded Sex Assigned at Not on file Legal Sex Female 9:51 AM EST Gender Identity Not on file Sexual Orientation Not on file Obstetrics History Plan of Treatment Health Maintenance Due Date Last Done Comments DTaP,Tdap,and Td Vaccines (1 - Tdap) 10/27/2006 Hepatitis B Vaccines (1 of 3 - 19+ 3-dose series) 10/27/2006 Cervical Cancer Screening: P ap Smear 10/27/2008 COVID-19 Vaccine (2023-2 5 season) 2023 Influenza Vaccine (Season Ended) 2024 HIB Vaccines Aged Out No longer eligi ble based on patient's age to complete this topic HPV Vaccines Aged Out No longer eligi ble based on patient's age to complete this topic Hepatitis A Vaccines Aged Out No long er eligible based on patient's age to complete this topic IPV Vaccines Aged Out No longer eligi ble based on patient's age to complete this topic MMR Vaccines Aged Out No longer eligi ble based on patient's age to complete this topic Meningococcal ACWY Vaccine Aged Out N o longer eligible based on patient's age to complete this topic Meningococcal B Vaccine Aged Out No l onger eligible based on patient's age to complete this topic Pneumococcal Vaccine: Pediat rics (0 to 5 Years) and At-Risk Patients (6 to 64 Years) Aged Out No longer eligible b ased on patient's age to complete this topic RSV Immunization Patients Un domingo 20 months Aged Out No longer eligible b ased on patient's age to complete this topic Varicella Vaccines Aged Out No longer eligible based on patient's age to complete this topic Care Teams Infusion Rn Relationship Specialty Start Date End Date Valeria Garcia FNP [address] [place] [address] PCP - General Family Medicine 11/06/17
== END 2024-07-02 10:02 | disposition home or self-care (01) ==
PROVIDERS: PCP Nurse Practitioner Family; Visit Provider Physician Assistant
DX: N30.00 Acute cystitis without hematuria (principal); Z91.89 Other specified personal risk factors, not elsewhere classified; Z13.9 Encounter for screening, unspecified

== ENCOUNTER 2024-07-02 09:23 | Outpatient (REF) | payer MEDICARE, MEDICAID, SELFPAY ==
--- OUTSIDE RECORDS SUMMARY | 2024-07-02 10:19 | XMS_ITS | Clinical Summary ---
Author Organization [facility] ity Address [address] [place] [address] Care Team Providers Care Cpht Name Role Phone Valeria Garcia GLASS GLAZIER Primary Care Provider [phone] Surgical History Surgery Date Site/Laterality Comments OTHER [...] age to complete this topic Care Teams Cpht Relationship Specialty Start Date End Date Valeria Garcia FNP [address] [place] [address] PCP - General Family Medicine 11/06/17
[2024-07-02 22:04] LABS: CT PCR NOT DETECTED (Not Detect.); NG PCR NOT DETECTED (Not Detect.)
== END 2024-07-02 09:24 | disposition home or self-care (01) ==
LOC: HO.LAB 09:23
PROVIDERS: Physician Assistant; PCP Nurse Practitioner Family
DX: N30.00 Acute cystitis without hematuria (principal); Z91.89 Other specified personal risk factors, not elsewhere classified
CPT/HCPCS: 81003; 87086; 87088; 87186; 87491; 87591; 99212

== ENCOUNTER 2024-07-09 09:17 | Outpatient (AMB) | payer MEDICARE, MEDICAID, SELFPAY ==
[2024-07-09 09:19] VITALS: BP 122/80; PULSE 89; O2SAT 95; BMI 32.3
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
--- OUTSIDE RECORDS SUMMARY | 2024-07-09 10:39 | XMS_ITS | Continuity of Care Document ---
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 Name Role Phone Elizabeth HAYWOOD, Leonard Day Primary Care Physician Encounter [facility] Date(s): 06/06/24 - 07/06/24 [facility] Surgical [facility] [address] [place], [place] [address] Attending Physician: Bharat Roach Admitting Physician: Bharat Roach Referring Physician: Bharat Roach Encounter Type: Triage Allergies, Adverse Reactions, Alerts No Known Allergies Medications acetaminophen 325 mg oral tablet 975 mg, By Mouth, Every 6 hours, Refills 0, Maintenance, 05/09/23 8:04:00 AM EDT, Partial fill upon patient request if the prescription is for a schedule II opioid drug. Start Date: 05/09/23 Status: Ordered Repeat number: 1 Colace sodium 100 mg oral capsule 100 mg, 1, capsule, By Mouth, 2 times a day, with plenty of water, # 20 capsule, Refills 0, Tot. Refills 0, Maintenance, 05/09/23 8:04:00 AM EDT, Route to Pharmacy Electronically, [facility], Partial fill upon patient request if the prescription is for a schedule II opioid drug., 175, cm, 05/09/23 3:52:00 EDT, Height, 132.5, kg, 05/07/23 16:41:00 EDT, Dry Weight Start Date: 05/09/23 Status: Ordered Quantity: 20.0 Unit: capsule Repeat number: 1 Ibuprofen Refills 0, Maintenance, 05/25/23 11:13:00 AM EDT, Partial fill upon patient request if the prescription is for a schedule II opioid drug. Start Date: 05/25/23 Status: Ordered Repeat number: 1 omeprazole 20 mg oral enteric coated capsule 1 capsule = 20 mg, By Mouth, 2 times a day, # 60 capsule, 0 Refills, Maintenance, 05/09/23 8:04:00 AM EDT, EC Capsule, [facility], Partial fill upon patient request if the prescription is for a schedule II opioid drug., 175, cm, 05/09/23 3:52:00 EDT, Height, 132.5, kg, 05/07/23 16:41:00 EDT, Dry Weight Start Date: 05/09/23 Status: Ordered Quantity: 60.0 Unit: capsule Repeat number: 1 oxyCODONE 5 mg oral tablet 5 mg, 1, tablet, By Mouth, Every 4 hours, PRN, # 12 tablet, Refills 0, Tot. Refills 0, Maintenance,Pain , Moderate, 05/09/23 8:04:00 AM EDT, Route to Pharmacy Electronically, [facility], Partial fill upon patient request if the prescription is for a schedule II opioid drug., 175, cm, 05/09/23 3:52:00 EDT, Height, 132.5, kg, 05/07/23 16:41:00 EDT, Dry Weight Start Date: 05/09/23 Status: Ordered Quantity: 12.0 Unit: tablet Repeat number: 1 Remove Patch 1 each, Topically, Every 72 hours, 0 Refills, Maintenance, Patch Start Date: 05/09/23 Status: Ordered Repeat number: 1 Scopolamine = 1 mg, Topically, Every 72 hours, 0 Refills, Maintenance, 05/09/23 8:04:00 AM EDT, Patch, Partial fill upon patient request if the prescription is for a schedule II opioid drug. Start Date: 05/09/23 Status: Ordered Repeat number: 1 Zofran ODT 4 mg oral tablet, disintegrating 1 tablet, By Mouth, Every 8 hours, PRN as needed for nausea/vomiting, 0 Refills, Maintenance, 05/25/23 11:14:00 AM EDT, DIS Tablet, Partial fill upon patient request if the prescription is for a schedule II opioid drug. 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, mild, in partial remission Confirmed Active Persistent depressive disorder with mixed features, currently mild Confirmed Active Obesity 1 Confirmed Active Severe obesity Confirmed Active 1Pre BMI 37 Social History Social History Type Response Smoking Status Never (less than 100 in lifetime) entered on: 03/27/22 Sex Sex Representation Female (finding) Patient Care team information Care Team Personnel Name: Nasima Doyle RN Position: S RN Member Role: Primary Care Nurse Name: Leonard Johnson NP Position: Reference Physician Member Role: PCP Address: [address] [place] [address] Telecom: Name: Elke Haynes RN Position: ALYCIAS RN Member Role: Primary Care Nurse Care Team Related Persons Name: ARPITA PRATER Name: ZACKERY RIVERA Name: KARLA HAYNES Name: RUBIN HAYNES Insurance Providers Guarantor name: ANGELI Health Plan Information #: 1 Payer: [facility] C[facility] [employer] [facility] Member Number: NA Policy Number: NA Group Number: [id number]
--- OUTSIDE RECORDS SUMMARY | 2024-07-09 10:39 | XMS_ITS | Continuity of Care Document ---
Author Organization [facility] Address [address] [place] [address]- Care Team Providers Care Tub Mender Name Role Phone Elizabeth HAYWOOD, Leonard Day Primary Care Physician Encounter [facility] Date(s): 05/19/24 - 07/06/24 [facility] [address] [place], [place] [address] Attending Physician: Km Cartwright MD Encounter Type: Pre Office Visit Allergies, Adverse Reactions, Alerts No Known Allergies [...] 8:04:00 AM EDT, Route to Pharmacy Electronically, [facility], Partial fill upon patient request [...] Maintenance, 05/09/23 8:04:00 AM EDT, EC Capsule, [facility], Partial fill upon patient request if [...] 8:04:00 AM EDT, Route to Pharmacy Electronically, [facility], Partial fill upon patient request if [...] Care team information Care Team Personnel Name: Yanira CERVANTES, Nasima Day Position: S RN Member Role: Primary Care Nurse Name: Leonard Johnson NP Position: Reference Physician Member Role: PCP Address: [address] [place] [address] Telecom: Name: Elke Haynes RN Position: Kevin RN Member Role: Primary Care Nurse Care Team Related Persons Name: ARPITA PRATER Name: ZACKERY RIVERA Name: KARLA HAYNES Name: RUBIN HAYNES Insurance Providers Guarantor name: ANGELI Health Plan Information #: 1 Payer: [employer] [employer] Member Number: [id number] Policy Number: NA Group Number: [facility] Health Plan Information #: 2 Payer: [facility] Member Number: [id number] Policy Number: NA Group Number: [id number]
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
== END 2024-07-09 10:39 | disposition home or self-care (01) ==
LOC: HO.HMCC 09:18
PROVIDERS: PCP Nurse Practitioner Family; Visit Provider Nurse Practitioner Family
DX: M25.561 Pain in right knee (principal); M79.661 Pain in right lower leg; S22.39XA Fracture of one rib, unspecified side, initial encounter for closed fracture; S06.0X0A Concussion without loss of consciousness, initial encounter; V89.2XXA Person injured in unspecified motor-vehicle accident, traffic, initial encounter; S01.91XA Laceration without foreign body of unspecified part of head, initial encounter

== ENCOUNTER → 2024-07-09 09:17 | Outpatient (BNVA) | payer MEDICARE, MEDICAID, SELFPAY | PROVIDERS: PCP Nurse Practitioner Family; Visit Provider Nurse Practitioner Family | DX: Z13.89 Encounter for screening for other disorder (principal) ==

== ENCOUNTER 2024-07-09 10:09 | Outpatient (REF) | payer MEDICARE, MEDICAID, SELFPAY ==
--- NOTE | ~2024-07-09 | XR_ITS ---
EXAMINATION: XR KNEE, RIGHT CLINICAL INFORMATION: M25.561 - Pain in right knee COMPARISON: None available. TECHNIQUE: Two views of the right knee. FINDINGS: No fracture, dislocation, or suspicious bone lesion. Normal bone mineralization. Normal alignment. Very mild degenerative arthritis medial compartment. Lateral and patellofemoral compartments are normal. No significant joint effusion. Soft tissues appear normal. XR/XR knee RT 2V IMPRESSION: 1. No acute bony abnormalities. 2. 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 3. No joint effusion. Electronically signed by: Vivek Rivas MD 07/09/2024 10:33 AM EDT
--- NOTE | ~2024-07-09 | US_ITS ---
EXAMINATION: US TRIPLEX LOWER EXTREMITY, RIGHT CLINICAL INFORMATION: Right lower leg pain. COMPARISON: 07/15/2020. TECHNIQUE: Color-flow triplex imaging with spectral analysis and compression Doppler were performed on the right lower extremity. FINDINGS: Respiratory variation, normal compression and augmented flow are noted throughout the right lower extremity. The visualized common femoral vein, superficial femoral vein, profunda femoral vein, popliteal vein and midcalf peroneal and posterior tibial venous segments show no evidence of deep venous thrombosis. There is no Lockhart's cyst. US/US venous duplex LE RT IMPRESSION: No evidence of deep venous thrombosis involving the right lower extremity. Electronically signed by: Vivek Rivas MD 07/09/2024 11:07 AM EDT
--- NOTE | ~2024-07-09 | XR_ITS ---
EXAMINATION: XR CHEST CLINICAL INFORMATION: S22.39XA - Fracture of one rib, unspecified side, initial encounter for ... COMPARISON: None available. TECHNIQUE: 2 views of the chest were obtained. FINDINGS: The cardiac, hilar, and mediastinal contours are normal. The lungs are clear bilaterally. There is no pneumothorax or pleural effusion. There is no focal osseous or soft tissue abnormality. No definite displaced rib fractures seen. There are cholecystectomy clips present. XR/XR chest 2V IMPRESSION: Normal chest. Electronically signed by: Vivek Rivas MD 07/09/2024 10:31 AM EDT
--- OUTSIDE RECORDS SUMMARY | 2024-07-09 11:42 | XMS_ITS | Encounter Summary ---
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 BLOOD ORDERABLES Final Resul t Performing Organization Address City/[facility]/ZIP Co de Phone Number [facility] [address] [place] [address], * Creatine kinase (07/06/2024 1:04 AM EDT) [facility] Total CK 124 34 - 145 unit/L LAB CHEMISTRY METHOD 07/06/2024 1:40 AM EDT [facility] Blood Venous blood specimen / Unknown Venipuncture / Unknown 07/06/2024 1:04 AM EDT 07/06/2024 1:14 AM EDT Vivek Baer MD LAB BLOOD ORDERABLES Final Resul t [facility] [address] [place] [address], [place] [phone] * Troponin I high sensitivity (07/06/2024 1:04 AM EDT) [facility] High Sensitivity Troponin I <3 0 - 39 ng/L LAB CHEMISTRY METHOD 07/06/2024 1:39 AM EDT [facility] Blood Venous blood specimen / Unknown Venipuncture / Unknown 07/06/2024 1:04 AM EDT 07/06/2024 1:14 AM EDT Vivek Baer MD LAB BLOOD ORDERABLES Final Resul t Performing Organization Address [facility]/State/ZIP Co de Phone Number [facility] [address] [place] [address], [place] [phone] documented in this encounter Visit Diagnoses Diagnosis [...] [id number] (Given - Provid er: Kristen Laers RN)1412 (Given - Provider: Bridget Robles RN) [...] Bridget Robles RN)1612 (Given - Provider: Bridget Rolbes RN) sodium chloride 0.9 % flush 10 [...] 07/06/2024 documented in this encounter Care Teams Managing Manager Relationship Specialty Start Date End Date Physician, No Pcp PCP - General 07/06/24 documented as of this encounter
--- OUTSIDE RECORDS SUMMARY | 2024-07-09 11:46 | XMS_ITS | Clinical Summary ---
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 Surgical Unit OB7 [address] [place] [address] Vivek Baer MD Duignan, Kevin, MD Zarif, [...] VIEWS RIGHT STAT 07/06/2024 2:33 AM EDT HI REPAIR INTERMEDIATE WOUNDS FACE/EARS/EYELID/NOSE/L IP/MUC MEMB 5.1-7.5 [...] on 07/06/2024 10:52 AM. Workstation Name - [id number] -------- FINAL REPORT -------- Dictated By: Lorri Fuller Dictated Date: 07/06/2024 10:51 ET Assigned Physician: Lorri Fuller Reviewed and Electronically Signed By: Lorri Fuller Signed Date: 07/06/2024 10:52 ET Workstation ID: [id number] Transcribed By: Self Edit Transcribed Date: 07/06/2024 [...] MD on 07/06/2024 10:52AM. Workstation Name - [id number] -------- FINAL REPORT -------- Dictated By: Lorri Fuller Dictated Date: 07/06/2024 10:51 ET Assigned Physician: Lorri Fuller Reviewed and Electronically Signed By: Lorri Fuller Signed Date: 07/06/2024 10:52 ET Workstation ID: [id number] Transcribed By: Self Edit Transcribed Date: 07/06/2024 10:51 ET Radha Alba MD IMG XR PROCEDURES Final Re sult * (ABNORMAL) Lactate, with reflex (07/06/2024 8:36 AM EDT) Only the most recent of3 resultswithin the time period is included. LACTIC ACID 2.6(H) 0.5 - 2.0 mmol/L LAB CHEMISTRY METHOD 07/06/2024 9:11 AM EDT [facility] Blood Venous blood specimen / Unknown Venipuncture / Unknown 07/06/2024 8:36 AM EDT 07/06/2024 8:51 AM EDT us Reagan Daniel MD LAB BLOOD ORDERABLES Final Resu lt [facility] [address] [place] [address], [place] [phone] * (ABNORMAL) Complete blood count (07/06/2024 8:36 AM EDT) WBC 7.6 4.0 - 10.5 K/mcL LAB HEMETOLOGY METHOD 07/06/2024 8:58 AM EDT [facility] RBC 4.56 4.20 - 5.40 M/mcL LAB HEMETOLOGY METHOD 07/06/2024 8:58 AM EDT [facility] Hemoglobin 14.0 12.5 - 16.0 g/dL LAB HEMETOLOGY METHOD 07/06/2024 8:58 AM EDT [facility] Hematocrit 41.7 37.0 - 47.0 % LAB HEMETOLOGY METHOD 07/06/2024 8:58 AM EDT [facility] MCV 91.4 78.0 - 100.0 FL LAB HEMETOLOGY METHOD 07/06/2024 8:58 AM EDT [facility] MCH 30.7 27.0 - 31.0 pcg LAB HEMETOLOGY METHOD 07/06/2024 8:58 AM EDT [facility] MCHC 33.6 32.0 - 36.0 g/dL LAB HEMETOLOGY METHOD 07/06/2024 8:58 AM EDT [facility] RDW 14.2(H) 11.5 - 14.0 % LAB HEMETOLOGY METHOD 07/06/2024 8:58 AM EDT [facility] Platelets 207 150 - 450 K/mcL LAB HEMETOLOGY METHOD 07/06/2024 8:58 AM EDT [facility] MPV 10.7 8.3 - 11.8 FL LAB HEMETOLOGY METHOD 07/06/2024 8:58 AM EDT [facility] Blood Venous blood specimen / Unknown Venipuncture / Unknown 07/06/2024 8:36 AM EDT 07/06/2024 8:51 AM EDT us Radha Alba MD LAB BLOOD ORDERABLES Final Result [facility] [address] [place] [address], * Phosphorus (07/06/2024 8:36 AM EDT) Only the most recent of2 resultswithin the time period is included. Phosphorus 3.2 2.4 - 5.1 mg/dL LAB CHEMISTRY METHOD 07/06/2024 9:21 AM EDT [facility] Blood Venous blood specimen / Unknown Venipuncture / Unknown 07/06/2024 8:36 AM EDT 07/06/2024 8:51 AM EDT us Radha Alba MD LAB BLOOD ORDERABLES Final Result Performing Organization Address [facility]/ZIP Co de Phone Number [facility] [address] [place] [address], * Magnesium (07/06/2024 8:36 AM EDT) Only the most recent of2 resultswithin the time period is included. Magnesium 2.1 1.6 - 2.6 mg/dL LAB CHEMISTRY METHOD 07/06/2024 9:21 AM EDT [facility] Blood Venous blood specimen / Unknown Venipuncture / Unknown 07/06/2024 8:36 AM EDT 07/06/2024 8:51 AM EDT us Radha Alba MD LAB BLOOD ORDERABLES Final Result Performing Organization Address [facility]/[employer] Co de Phone Number [facility] [address] [place] [address], * (ABNORMAL) Basic metabolic panel (07/06/2024 8:36 AM EDT) Sodium 143 136 - 145 mmol/L LAB CHEMISTRY METHOD 07/06/2024 9:21 AM EDT [facility] Potassium 3.7 3.5 - 5.1 mmol/L LAB CHEMISTRY METHOD 07/06/2024 9:21 AM EDT [facility] Chloride 109(H) 98 - 107 mmol/L LAB CHEMISTRY METHOD 07/06/2024 9:21 AM EDT [facility] CO2 22 20 - 31 mmol/L LAB CHEMISTRY METHOD 07/06/2024 9:21 AM EDT [facility] Anion Gap 12 5 - 14 LAB CHEMISTRY METHOD 07/06/2024 9:21 AM EDT [facility] Glucose 78 70 - 199 mg/dL LAB CHEMISTRY METHOD 07/06/2024 9:21 AM EDT [facility] BUN <5(L) 9 - 23 mg/dL LAB CHEMISTRY METHOD 07/06/2024 9:21 AM EDT [facility] Creatinine 0.56 0.55 - 1.02 mg/dL LAB CHEMISTRY METHOD 07/06/2024 9:21 AM EDT [facility] eGFR 121 >=60 mL/min/1. 73m2 LAB CHEMISTRY METHOD 07/06/2024 9:21 AM EDT [facility] Comment:Calculation based on the Chronic Kidney Disease Epidemiology Collaboration (CKD-EPI) equation refit without adjustment for race. BUN/Creatinine Ratio LAB CHEMISTRY METHOD 07/06/2024 9:21 AM EDT [facility] Comment:Creatinine and/or Ur ea Nitrogen (BUN) above or below reportable range; unable to calculate BUN/Creatinine Ratio. Calcium 8.4(L) 8.7 - 10.4 mg/dL LAB CHEMISTRY METHOD 07/06/2024 9:21 AM EDT [facility] Blood Venous blood specimen / Unknown Venipuncture / Unknown 07/06/2024 8:36 AM EDT 07/06/2024 8:51 AM EDT us Radha Alba MD LAB BLOOD ORDERABLES Final Result [facility] [address] [place] [address], [place] [phone] * (ABNORMAL) Urinalysis with reflex microscopic (07/06/2024 2:56 AM EDT) Color, Urine Colorless(A ) Yellow LAB URINALYSIS - AUTOMATED METHOD 07/06/2024 3:05 AM [facility][1] LAB Clarity, Urine Clear Clear LAB URINALYSIS - AUTOMATED METHOD 07/06/2024 3:05 AM [facility][1] LAB Specific [place] Urine 1.038(H) 1.005 - 1.030 LAB URINALYSIS - AUTOMATED METHOD 07/06/2024 3:05 AM [facility][1] LAB pH, Urine 7.0 5.0 - 8.0 pH LAB URINALYSIS - AUTOMATED METHOD 07/06/2024 3:05 AM [facility][1] LAB Leukocytes, Urine Negative Negative WBCs/mcL LAB URINALYSIS - AUTOMATED METHOD 07/06/2024 3:05 AM [facility][1] LAB Nitrite, Urine Negative Negative LAB URINALYSIS - AUTOMATED METHOD 07/06/2024 3:05 AM [facility][1] LAB Protein, Urine Negative Negative mg/dL LAB URINALYSIS - AUTOMATED METHOD 07/06/2024 3:05 AM [facility][1] LAB Glucose, Urine Normal Normal mg/dL LAB URINALYSIS - AUTOMATED METHOD 07/06/2024 3:05 AM [facility][1] LAB Ketones, Urine Negative Negative, <10 mg/dL LAB URINALYSIS - AUTOMATED METHOD 07/06/2024 3:05 AM [facility][1] LAB Urobilinogen, Urine Normal Normal (<2.0) mg/dL LAB URINALYSIS - AUTOMATED METHOD 07/06/2024 3:05 AM [facility][1] LAB Bilirubin, Urine Negative Negative mg/dL LAB URINALYSIS - AUTOMATED METHOD 07/06/2024 3:05 AM [facility][1] LAB Blood, Urine Negative <=1.0 mg/dL LAB URINALYSIS - AUTOMATED METHOD 07/06/2024 3:05 AM [facility][1] LAB Urine Urine specimen obtained by clean catch procedure / Unknown Non-blood Collection / Unknown 07/06/2024 2:56 AM EDT 07/06/2024 3:00 AM EDT us Vivek Baer MD LAB URINE ORDERABLES Final Resul t [facility] [address] [place] [address], * Drug abuse screen expanded, urine (07/06/2024 2:56 AM EDT) [facility] Signature Amphetamine Screen, Ur Negative Negative LAB CHEMISTRY METHOD 07/06/2024 5:24 AM EDT [facility] Comment:Unconfirmed screenin g results for medical purposes only. Urine amphetamine cutoff: 1000ng/mL Barbiturate Screen, Ur Negative Negative LAB CHEMISTRY METHOD 07/06/2024 5:24 AM EDT [facility] Comment:Unconfirmed screenin g results for medical purposes only. Urine barbiturates cutoff: 200 ng/mL Benzodiazepine Screen, Ur Negative Negative LAB CHEMISTRY METHOD 07/06/2024 5:24 AM EDT [facility] Comment: Unconfirmed screening results for [...] LAB CHEMISTRY METHOD 07/06/2024 5:24 AM EDT [facility] Comment:Unconfirmed screenin g results for medical purposes only. Urine cannabinoid (THC) cutoff: 50 ng/mL Cocaine Screen, Ur Negative Negative LAB CHEMISTRY METHOD 07/06/2024 5:24 AM EDT [facility] Comment:Unconfirmed screenin g results for medical purposes only. Urine cocaine cutoff: 300 ng/mL Opiate Screen, Ur Negative Negative LAB CHEMISTRY METHOD 07/06/2024 5:24 AM EDT [facility] Comment:Unconfirmed screenin g results for medical purposes only. Urine opiates cutoff: 300 ng/mL PCP Scrn, Ur Negative Negative LAB CHEMISTRY METHOD 07/06/2024 5:24 AM EDT [facility] Comment:Unconfirmed screenin g results for medical purposes only. Urine PCP cutoff: 25 ng/mL Oxycodone Screen, Ur Negative Negative LAB CHEMISTRY METHOD 07/06/2024 5:24 AM EDT [facility] Comment:Unconfirmed screenin g results for medical purposes only. Urine oxycodone cutoff: 300 ng/mL Fentanyl, Ur Negative Negative LAB CHEMISTRY METHOD 07/06/2024 5:24 AM EDT [facility] Comment:Unconfirmed screenin g results for medical purposes only. Urine fentanyl cutoff: 1 ng/mL Urine Urine specimen obtained by clean catch procedure / Unknown Non-blood Collection / Unknown 07/06/2024 2:56 AM EDT 07/06/2024 3:00 AM EDT us Vivek Baer MD LAB URINE ORDERABLES Final Resul t [facility] [address] [place] [address], * XR Tibia Fibula 2 Views bilat [...] on 07/06/2024 8:02 AM. Workstation Name - [id number] -------- FINAL REPORT -------- Dictated By: Lorri Fuller Dictated Date: 07/06/2024 08:01 ET Assigned Physician: Lorri Fuller Reviewed and Electronically Signed By: Lorri Fuller Signed Date: 07/06/2024 08:02 ET Workstation ID: [id number] Transcribed By: Self Edit Transcribed Date: 07/06/2024 [...] MD on 07/06/2024 8:02 AM.Workstation Name - [id number] -------- FINAL REPORT -------- Dictated By: Lorri Fuller Dictated Date: 07/06/2024 08:01 ET Assigned Physician: Lorri Fuller Reviewed and Electronically Signed By: Lorri Fuller Signed Date: 07/06/2024 08:02 ET Workstation ID: [id number] Transcribed By: Self Edit Transcribed Date: 07/06/2024 [...] on 07/06/2024 8:00 AM. Workstation Name - [id number] -------- FINAL REPORT -------- Dictated By: Lorri Fuller Dictated Date: 07/06/2024 07:59 ET Assigned Physician: Lorri Fuller Reviewed and Electronically Signed By: Lorri Fuller Signed Date: 07/06/2024 08:00 ET Workstation ID: [id number] Transcribed By: Self Edit Transcribed Date: 07/06/2024 [...] MD on 07/06/2024 8:00 AM.Workstation Name - [id number] -------- FINAL REPORT -------- Dictated By: Lorri Fuller Dictated Date: 07/06/2024 07:59 ET Assigned Physician: Lorri Fuller Reviewed and Electronically Signed By: Lorri Fuller Signed Date: 07/06/2024 08:00 ET Workstation ID: [id number] Transcribed By: Self Edit Transcribed Date: 07/06/2024 [...] on 07/06/2024 8:01 AM. Workstation Name - [id number] -------- FINAL REPORT -------- Dictated By: Lorri Fuller Dictated Date: 07/06/2024 08:00 ET Assigned Physician: Lorri Fuller Reviewed and Electronically Signed By: Lorri Fuller Signed Date: 07/06/2024 08:01 ET Workstation ID: [id number] Transcribed By: Self Edit Transcribed Date: 07/06/2024 [...] MD on 07/06/2024 8:01 AM.Workstation Name - [id number] -------- FINAL REPORT -------- Dictated By: Lorri Fuller Dictated Date: 07/06/2024 08:00 ET Assigned Physician: Lorri Fuller Reviewed and Electronically Signed By: Lorri Fuller Signed Date: 07/06/2024 08:01 ET Workstation ID: [id number] Transcribed By: Self Edit Transcribed Date: 07/06/2024 08:00 ET us Vivek Baer MD IMG XR PROCEDURES Final Result * HI REPAIR INTERMEDIATE WOUNDS FACE/EARS/EYELID/NOSE/LIP/MUC MEMB 5.1-7.5 CM [...] for additional repair ??Alternatives discussed: ??No treatment [place] protocol: ??Procedure explained and questions answered to [...] ECG 12 lead (07/06/2024 1:08 AM EDT) [facility] Ventricular Rate ECG 105 BPM GEMUSE Atrial Rate 105 BPM GEMUSE P-R Interval 152 ms GEMUSE QRS Duration 94 ms GEMUSE Q-T Interval 372 ms GEMUSE QTc 491 ms GEMUSE P Wave [place] 12 degrees GEMUSE R [place] 15 degrees GEMUSE T [place] 29 degrees GEMUSE ECG Interpretation Sinus tachycardia T wave abnormality, consider anterior ischemia Abnormal ECG No previous ECGs available Confirmed by Reagan Whitlock ([id number]) on 07/06/2024 7:41:43 AM GEMUSE 07/06/2024 1:08 AM EDT 07/06/2024 7:41 AM EDT Vivek Baer MD ECG ORDERABLES Final Result Performing Organization Address City/[facility]/ZIP Co de Phone Number GEMUSE * Troponin I high sensitivity (07/06/2024 1:04 AM EDT) [facility] High Sensitivity Troponin I <3 0 - 39 ng/L LAB CHEMISTRY METHOD 07/06/2024 1:39 AM EDT [facility] Blood Venous blood specimen / Unknown Venipuncture / Unknown 07/06/2024 1:04 AM EDT 07/06/2024 1:14 AM EDT Vivek Baer MD LAB BLOOD ORDERABLES Final Resul t Performing Organization Address City/[facility]/ZIP Co de Phone Number [facility] [address] [place] [address], * (ABNORMAL) CBC auto differential (07/06/2024 1:04 AM EDT) [facility] WBC 6.7 4.0 - 10.5 K/mcL LAB HEMETOLOGY METHOD 07/06/2024 1:26 AM EDT [facility] RBC 5.14 4.20 - 5.40 M/[facility] LAB HEMETOLOGY METHOD 07/06/2024 1:26 AM EDT [facility] Hemoglobin 15.7 12.5 - 16.0 g/dL LAB HEMETOLOGY METHOD 07/06/2024 1:26 AM EDT [facility] Hematocrit 47.5(H) 37.0 - 47.0 % LAB HEMETOLOGY METHOD 07/06/2024 1:26 AM EDT [facility] MCV 92.4 78.0 - 100.0 FL LAB HEMETOLOGY METHOD 07/06/2024 1:26 AM EDT [facility] MCH 30.5 27.0 - 31.0 pcg LAB HEMETOLOGY METHOD 07/06/2024 1:26 AM EDT [facility] MCHC 33.1 32.0 - 36.0 g/dL LAB HEMETOLOGY METHOD 07/06/2024 1:26 AM EDT [facility] RDW 14.0 11.5 - 14.0 % LAB HEMETOLOGY METHOD 07/06/2024 1:26 AM EDT [facility] Platelets 233 150 - 450 K/[facility] LAB HEMETOLOGY METHOD 07/06/2024 1:26 AM EDT [facility] MPV 10.6 8.3 - 11.8 FL LAB HEMETOLOGY METHOD 07/06/2024 1:26 AM EDT [facility] Neutrophils Relative 58.1 25.0 - 62.0 % LAB HEMETOLOGY METHOD 07/06/2024 1:26 AM EDT [facility] Basophils Relative 0.3 0.0 - 2.0 % LAB HEMETOLOGY METHOD 07/06/2024 1:26 AM EDT [facility] Eosinophils Relative 1.2 0.0 - 6.0 % LAB HEMETOLOGY METHOD 07/06/2024 1:26 AM EDT [facility] Lymphocytes Relative 33.8 20.0 - 48.0 % LAB HEMETOLOGY METHOD 07/06/2024 1:26 AM EDT [facility] Monocytes Relative 6.0 2.0 - 12.0 % LAB HEMETOLOGY METHOD 07/06/2024 1:26 AM EDT [facility] NRBC 0.0 0.0 - 1.0 % LAB HEMETOLOGY METHOD 07/06/2024 1:26 AM EDT [facility] Immature Granulocytes Relative 0.6 0.0 - 1.0 % LAB HEMETOLOGY METHOD 07/06/2024 1:26 AM EDT [facility] Immature Granulocytes Absolute 0.04 <0.10 K/mcL LAB HEMETOLOGY METHOD 07/06/2024 1:26 AM EDT [facility] Neutrophils Absolute 3.88 1.50 - 7.00 K/mcL LAB HEMETOLOGY METHOD 07/06/2024 1:26 AM EDT [facility] Basophils Absolute 0.02 0.00 - 0.20 K/mcL LAB HEMETOLOGY METHOD 07/06/2024 1:26 AM [facility][1] LAB Eosinophils Absolute 0.08 0.00 - 0.60 K/mcL LAB HEMETOLOGY METHOD 07/06/2024 1:[facility] Lymphocytes Absolute 2.26 1.00 - 5.00 K/mcL LAB HEMETOLOGY METHOD 07/06/2024 1:26 AM T [facility] Monocytes Absolute 0.40 0.10 - 1.20 K/mcL LAB HEMETOLOGY METHOD 07/06/2024 1:26 AM [facility][1] LAB Blood Venous blood specimen / Unknown Venipuncture / Unknown 07/06/2024 1:04 AM EDT 07/06/2024 1:14 AM EDT us Vivek Baer MD LAB BLOOD ORDERABLES Final Resul t Performing Organization Address [facility]/ZIP Co de Phone Number [facility] [address] [place] [address], [place] [phone] * APTT (07/06/2024 1:04 AM EDT) aPTT 33.1 25.0 - 37.0 sec LAB COAGULATION METHOD 07/06/2024 1:37 AM EDT [facility] Blood Venous blood specimen / Unknown Venipuncture / Unknown 07/06/2024 1:04 AM EDT 07/06/2024 1:14 AM EDT us Vivek Baer MD LAB BLOOD ORDERABLES Final Resul t Performing Organization Address [facility]/ZIP Co de Phone Number [facility] [address] [place] [address], [place] [phone] * (ABNORMAL) Protime-INR (07/06/2024 1:04 AM EDT) Protime 13.4(H) 10.5 - 13.3 sec LAB COAGULATION METHOD 07/06/2024 1:37 AM EDT [facility] INR 1.1 0.8 - 1.1 LAB COAGULATION METHOD 07/06/2024 1:37 AM EDT [facility] Blood Venous blood specimen / Unknown Venipuncture / Unknown 07/06/2024 1:04 AM EDT 07/06/2024 1:14 AM EDT Narrative [facility] - 07/06/2024 1:37 AM EDT Std. Therapy ?2.0-3.0 INR High Dose Therapy 3.0-4.5 INR Ranges may vary depending on clinical indications and protocol. us Vivek Baer MD LAB BLOOD ORDERABLES Final Resul t [facility] [address] [place] [address], * Type and Screen (07/06/2024 1:04 AM EDT) ABO Group A 07/06/2024 2:18 AM EDT [facility] Rh Type Positive 07/06/2024 2:18 AM EDT [facility] Antibody Screen Negative 07/06/2024 2:18 AM EDT [facility] Blood Venous blood specimen / Unknown Venipuncture / Unknown 07/06/2024 1:04 AM EDT 07/06/2024 1:13 AM EDT us Vivek Baer MD LAB BLOOD BANK TEST ORDERABLES F inal Result [facility] [address] [place] [address], * HCG, quantitative (07/06/2024 1:04 AM EDT) hCG Quant <3 mIU/mL LAB CHEMISTRY METHOD 07/06/2024 1:39 AM EDT [facility] Blood Venous blood specimen / Unknown Venipuncture / Unknown 07/06/2024 1:04 AM EDT 07/06/2024 1:14 AM EDT Narrative [facility] - 07/06/2024 1:39 AM EDT Interpretive [...] ? 8 to 12 ?10,000-100,000 Performed using [employer] Immunoassay methodology Vivek Baer MD LAB BLOOD ORDERABLES Final Resul t Performing Organization Address [facility] de Phone Number [facility] [address] [place] [address], * (ABNORMAL) Lipase (07/06/2024 1:04 AM EDT) Lipase 75(H) 12 - 53 unit/L LAB CHEMISTRY METHOD 07/06/2024 1:40 AM EDT [facility] Blood Venous blood specimen / Unknown Venipuncture / Unknown 07/06/2024 1:04 AM EDT 07/06/2024 1:14 AM EDT Vivek Baer MD LAB BLOOD ORDERABLES Final Resul t Performing Organization Address [facility]/[employer] Co de Phone Number [facility] [address] [place] [address], [place] [phone] * Creatine kinase (07/06/2024 1:04 AM EDT) Total CK 124 34 - 145 unit/L LAB CHEMISTRY METHOD 07/06/2024 1:40 AM EDT [facility] Blood Venous blood specimen / Unknown Venipuncture / Unknown 07/06/2024 1:04 AM EDT 07/06/2024 1:14 AM EDT Vivek Baer MD LAB BLOOD ORDERABLES Final Resul t [facility] [address] [place] [address], * (ABNORMAL) Ethanol (07/06/2024 1:04 AM EDT) Ethanol Level 173(H) <3 mg/dL LAB CHEMISTRY METHOD 07/06/2024 1:40 AM EDT [facility] Blood Venous blood specimen / Unknown Venipuncture / Unknown 07/06/2024 1:04 AM EDT 07/06/2024 1:14 AM EDT Narrative [facility] - 07/06/2024 1:40 AM EDT Limit of detection (LOD): 3 mg/dL ?State of [place] legal limit of intoxication: ? 21 or older: ??80 mg/dL ?<21 years old: 20 mg/dL us Vivek Baer MD LAB BLOOD ORDERABLES Final Resul t [facility] [address] [place] [address], * (ABNORMAL) Comprehensive metabolic panel (07/06/2024 1:04 AM EDT) Sodium 144 136 - 145 mmol/L LAB CHEMISTRY METHOD 07/06/2024 1:40 AM [facility][1] LAB Potassium 3.6 3.5 - 5.1 mmol/L LAB CHEMISTRY METHOD 07/06/2024 1:40 AM [facility][1] LAB Chloride 107 98 - 107 mmol/L LAB CHEMISTRY METHOD 07/06/2024 1:40 AM [facility][1] LAB CO2 24 20 - 31 mmol/L LAB CHEMISTRY METHOD 07/06/2024 1:40 AM [facility][1] LAB Anion Gap 13 5 - 14 LAB CHEMISTRY METHOD 07/06/2024 1:40 AM [facility][1] LAB Glucose 94 70 - 199 mg/dL LAB CHEMISTRY METHOD 07/06/2024 1:40 AM [facility][1] LAB BUN 7(L) 9 - 23 mg/dL LAB CHEMISTRY METHOD 07/06/2024 1:40 AM [facility][1] LAB Creatinine 0.72 0.55 - 1.02 mg/dL LAB CHEMISTRY METHOD 07/06/2024 1:40 AM [facility][1] LAB eGFR 111 >=60 mL/min/1. 73m2 LAB CHEMISTRY METHOD 07/06/2024 1:40 AM [facility][1] LAB Comment:Calculation based on the Chronic Kidney Disease Epidemiology Collaboration (CKD-EPI) equation refit without adjustment for race. BUN/Creatinine Ratio 9.7(L) 12.0 - 20.0 LAB CHEMISTRY METHOD 07/06/2024 1:40 AM [facility][1] LAB Calcium 9.1 8.7 - 10.4 mg/dL LAB CHEMISTRY METHOD 07/06/2024 1:40 AM [facility][1] LAB AST (SGOT) 27 <34 unit/L LAB CHEMISTRY METHOD 07/06/2024 1:40 AM [facility][1] LAB ALT (SGPT) 20 10 - 49 unit/L LAB CHEMISTRY METHOD 07/06/2024 1:40 AM [facility][1] LAB Alkaline Phosphatase 62 46 - 116 unit/L LAB CHEMISTRY METHOD 07/06/2024 1:40 AM EDT [facility] LAB Total Protein 7.7 5.7 - 8.2 g/dL LAB CHEMISTRY METHOD 07/06/2024 1:40 AM EDT [facility] LAB Globulin, Total 3.1 2.3 - 3.5 g/dL LAB CHEMISTRY METHOD 07/06/2024 1:40 AM EDT [facility] LAB A/G Ratio 1.5 1.0 - 1.7 LAB CHEMISTRY METHOD 07/06/2024 1:40 AM EDT [facility] LAB Total Bilirubin 0.4 0.2 - 1.1 mg/dL LAB CHEMISTRY METHOD 07/06/2024 1:40 AM EDT [facility] LAB Albumin 4.6 3.2 - 4.8 g/dL LAB CHEMISTRY METHOD 07/06/2024 1:40 AM EDT [facility] LAB Blood Venous blood specimen / Unknown Venipuncture / Unknown 07/06/2024 1:04 AM EDT 07/06/2024 1:14 AM EDT us Vivek Baer MD LAB BLOOD ORDERABLES Final Resul t [facility] [address] [place] [address], from Last 3 Months Insurance MEDICAID - [...] currently active code status orders. Care Teams [employer] Apprentice Relationship Specialty Start Date End Date Physician, No Pcp PCP - General 07/06/24
== END 2024-07-09 10:10 | disposition home or self-care (01) ==
LOC: HO.HMGCX 10:09
PROVIDERS: PCP Nurse Practitioner Family; Visit Provider Nurse Practitioner Family
DX: M79.661 Pain in right lower leg (principal); M25.561 Pain in right knee; S22.39XA Fracture of one rib, unspecified side, initial encounter for closed fracture; S06.0X0A Concussion without loss of consciousness, initial encounter; S01.81XA Laceration without foreign body of other part of head, initial encounter; V89.2XXA Person injured in unspecified motor-vehicle accident, traffic, initial encounter; Y93.89 Activity, other specified; Y92.410 Unspecified street and highway as the place of occurrence of the external cause; Y99.9 Unspecified external cause status
CPT/HCPCS: 71046; 73560; 93971; 96127; 99212

== ENCOUNTER → 2024-07-09 10:14 | Outpatient (BNV) | payer MEDICARE, MEDICAID, SELFPAY | PROVIDERS: PCP Nurse Practitioner Family; Visit Provider Radiology Diagnostic Radiology | DX: M79.661 Pain in right lower leg (principal); S22.39XA Fracture of one rib, unspecified side, initial encounter for closed fracture; M25.561 Pain in right knee | CPT/HCPCS: 71046; 73560; 93971 ==

== ENCOUNTER 2024-07-13 10:01 | Emergency (ER) | payer MEDICARE, MEDICAID, SELFPAY ==
--- NOTE | ~2024-07-13 | XR_ITS ---
CLINICAL HISTORY: trauma 3 view left ribs Comparison: CR - XR CHEST 2V - 07/13/24 10:50 EDT CR/SR - XR CHEST 2V - 07/09/24 10:27 EDT Findings: There are displaced fractures of the posterolateral 2nd and 3rd ribs. There is no evidence of pneumothorax. IMPRESSION: There are displaced fractures of the posterolateral 2nd and 3rd ribs. This document has been electronically signed by: Parker Finch MD on 07/13/2024 12:56:08
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
[2024-07-13 10:24] VITALS: BP 112/73; PULSE 95; RESP 18; TEMP 36.6; O2SAT 97; BMI 32.0
[2024-07-13 10:49] LABS: MANUAL DIFF FLAG NO
[2024-07-13 10:50] LABS: Basophils Percent Auto 0.3 % (0-2); Eosinophils Absolute Auto 0.1 X10*3/uL (0.0-0.4); Hematocrit 41.2 % (37.0-47.0); Hemoglobin 13.8 g/dl (12.0-16.0); Imm Gran Abs Auto 0.05 X10*3/uL (0.00-0.03); Imm Gran Pct Auto 0.6 % (0.0-0.4); Lymphocytes Absolute Auto 1.2 X10*3/uL (1.2-4.9); Lymphocytes Percent Auto 15.3 % (20-40); Mean Corpuscular HGB Conc 33.5 g/dl (31.0-35.0); Mean Corpuscular Hemoglobin 30.5 pg (27.0-33.0); Mean Corpuscular Volume 90.9 fL (80.0-98.0); Mean Platelet Volume 9.9 fL (9.4-12.3); Monocytes Absolute Auto 0.5 X10*3/uL (0.1-1.2); Monocytes Percent Auto 5.8 % (2-11); Neutrophils Absolute Auto 6.2 x10*3/uL (2.0-8.3); Platelet Count 211 X10*3/uL (160-400); Red Blood Count 4.53 X10*6/uL (4.20-5.50); Red Cell Distribution Width 13.6 % (11.0-16.0)
[2024-07-13 11:10] VITALS: BP 106/74; PULSE 90; RESP 14; TEMP 36.7; O2SAT 97
[2024-07-13 11:14] LABS: Alanine Aminotransferase 12 U/L (0-31); Albumin Level 3.8 g/dL (3.5-5.0); Alkaline Phosphatase 64 U/L (39-117); Anion Gap 10 (12-20); Aspartate Amino Transferase 21 U/L (5-31); Bilirubin Total 0.6 mg/dL (0.0-1.0); Blood Urea Nitrogen 10 mg/dL (9-16); Carbon Dioxide 25 mmol/L (22-29); Chloride 107 mmol/L (96-108); Creatinine Clr Calc Pharmacy 156.6; Estimated Glomerular Filt Rate > 60; Glucose Random 85 mg/dL (60-115); Potassium 4.3 mmol/L (3.3-5.1); Sodium 138 mmol/L (135-145); Total Protein 7.2 g/dL (6.5-8.0)
--- NOTE | 2024-07-13 11:24 | ECG_ITS ---
Test Reason : syncope Blood Pressure : */* mmHG Vent. Rate : 90 BPM Atrial Rate : 90 BPM P-R Int : 158 ms QRS Dur : 88 ms QT Int : 372 ms P-R-T Axes : 18 0 8 degrees QTcB Int : 455 ms Normal sinus rhythm T wave abnormality, consider anterior ischemia Abnormal ECG No previous ECGs available Referred By: James Srivastava Electronically Signed By: Orlin Ahumada
[2024-07-13] MEDS: oxyCODONE HCl Immed Release 5 MG TABLET PO (11:47)
[2024-07-13] MEDS: Acetaminophen 325 MG TABLET 650 MG PO (11:48)
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
[2024-07-13 13:21] VITALS: BP 102/65; PULSE 87; RESP 16; TEMP 36.9; O2SAT 97
== END 2024-07-13 13:25 | disposition home or self-care (01) ==
PROVIDERS: Emergency Provider Emergency Medicine; PCP Nurse Practitioner Family
DX: S22.42XA Multiple fractures of ribs, left side, initial encounter for closed fracture (principal); R07.1 Chest pain on breathing; R94.31 Abnormal electrocardiogram [ECG] [EKG]; M54.6 Pain in thoracic spine; R10.9 Unspecified abdominal pain; R42 Dizziness and giddiness; R55 Syncope and collapse; V43.92XA Unspecified car occupant injured in collision with other type car in traffic accident, initial encounter; Y93.9 Activity, unspecified; Y92.410 Unspecified street and highway as the place of occurrence of the external cause; Y99.8 Other external cause status
CPT/HCPCS: 36415; 71046; 71100; 80053; 85025; 93005; 99283; 99285

== ENCOUNTER → 2024-07-13 11:24 | Outpatient (BNV) | payer MEDICARE, MEDICAID, SELFPAY | PROVIDERS: Emergency Provider Emergency Medicine; PCP Nurse Practitioner Family; Visit Provider Internal Medicine Cardiovascular Disease | DX: R94.31 Abnormal electrocardiogram [ECG] [EKG] (principal); R55 Syncope and collapse | CPT/HCPCS: 93010 ==

== ENCOUNTER 2024-07-17 08:49 | Outpatient (AMB) | payer MEDICARE, MEDICAID, SELFPAY ==
[2024-07-17 08:51] VITALS: BP 104/70; PULSE 86; RESP 16; TEMP 36.6; O2SAT 94; BMI 32.2
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
== END 2024-07-17 09:57 | disposition home or self-care (01) ==
LOC: HO.HMCC 08:49
PROVIDERS: PCP Nurse Practitioner Family; Visit Provider Nurse Practitioner Family
DX: R04.2 Hemoptysis (principal); V89.2XXA Person injured in unspecified motor-vehicle accident, traffic, initial encounter; S01.91XA Laceration without foreign body of unspecified part of head, initial encounter; S22.39XA Fracture of one rib, unspecified side, initial encounter for closed fracture

== ENCOUNTER → 2024-07-17 08:49 | Outpatient (BNVA) | payer MEDICARE, MEDICAID, SELFPAY | PROVIDERS: PCP Nurse Practitioner Family; Visit Provider Nurse Practitioner Family | DX: R04.2 Hemoptysis (principal); S01.91XD Laceration without foreign body of unspecified part of head, subsequent encounter; S22.39XD Fracture of one rib, unspecified side, subsequent encounter for fracture with routine healing; V89.2XXD Person injured in unspecified motor-vehicle accident, traffic, subsequent encounter | CPT/HCPCS: 99212 ==

== ENCOUNTER 2024-08-14 13:52 | Outpatient (AMB) | payer MEDICARE, MEDICAID, SELFPAY ==
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
[2024-08-14 13:55] VITALS: BP 128/82; PULSE 75; TEMP 37.3; O2SAT 99; BMI 33.6
== END 2024-08-14 14:44 | disposition home or self-care (01) ==
LOC: HO.HMCC 13:53
PROVIDERS: PCP Nurse Practitioner Family; Visit Provider Nurse Practitioner Family
DX: S22.42XA Multiple fractures of ribs, left side, initial encounter for closed fracture (principal); V89.2XXA Person injured in unspecified motor-vehicle accident, traffic, initial encounter; S06.0X0A Concussion without loss of consciousness, initial encounter; Z04.3 Encounter for examination and observation following other accident

== ENCOUNTER → 2024-08-14 13:52 | Outpatient (BNVA) | payer OTHER, SELFPAY | PROVIDERS: PCP Nurse Practitioner Family; Visit Provider Nurse Practitioner Family | DX: S06.0X0D Concussion without loss of consciousness, subsequent encounter (principal); S22.39XD Fracture of one rib, unspecified side, subsequent encounter for fracture with routine healing; V89.2XXD Person injured in unspecified motor-vehicle accident, traffic, subsequent encounter | CPT/HCPCS: 96127; 99212 ==

== ENCOUNTER 2024-10-27 12:55 | Outpatient (AMB) | payer OTHER, SELFPAY ==
[2024-10-27 13:00] VITALS: BP 112/72; PULSE 64; RESP 16; O2SAT 98
--- NOTE | 2024-10-27 13:00 | A.OFFPC_ITS ---
Vital Signs 10/27/24 13:00 Height 5 ft 8 in Weight 197 lb BMI 30.0 BP 112/72 Blood Pressure Location Lt brachial Position Sitting Respiration 16 Pulse 64 Pulse Source Pulse Oximeter Pulse Oximetry (%) 98 Oxygen Delivery Method Room Air Intake Visit Reasons: follow up Overhead Foreman Required: No Accompanied by: Self / Same As Patient Allergies dog dander Allergy (Severe, Verified 10/27/24 13:02) Sneezing meloxicam Allergy (Verified 10/27/24 13:02) passed out, dizzy, lost vision Medication List - Last Reconciled 10/27/24 by Leonard Johnson TRACK TEMPLATE MAKER- betamethasone dipropionate 0.05% 1 appl topical DAILY PRN gabapentin 100 mg PO TID 30 days ibuprofen 600 mg PO TID ketoconazole 2% 1 appl topical 2XW nabumetone 500 mg PO BID PRN 30 days ondansetron 4 mg PO DAILY PRN 30 days tirzepatide (weight loss) 15 mg (0.5 mL) subcut QWEEK valacyclovir 2,000 mg (2 x 1 gram) PO BID 1 day Tobacco use date assessed: 08/14/24 Dental Screening Dental Screen Date: 10/27/24 Did you have a dental visit in the last 12 months?: Yes Did you have a dental problem in the last 6 months where you did not have access to dental care?: No Was dental information given to patient?: Patient has dentist HPI follow up HPI Details Chief Complaint The patient presents for weight management and evaluation of nausea and back pain. History of Present Illness The patient is a 39-year-old female presenting with weight management concerns. She is currently on a GLP-1 receptor agonist for weight loss and has experienced significant weight reduction. As a result of the weight loss, she has developed excessive loose skin and is planning to undergo surgery for its removal. The patient reports intermittent nausea, which she manages with Zofran as needed. She denies any chest pain or dyspnea. Her back pain has improved significantly following the weight loss. Social History Health Maintenance Review of Systems - Gastrointestinal: Reports intermittent nausea. - Respiratory: Denies dyspnea. - Cardiovascular: Denies chest pain. -denies any fevers, chills, abd cramping Physical Exam General: Cooperative, healthy appearing, comfortable, no acute distress and well developed Orientation: Patient oriented x3 Limitations: No limitations Head: Normal to inspection Ears: Hearing grossly normal bilaterally Nose: Normal external nose present Face and sinus: Normal facial exam Eyes: Appearance normal, both eyes and all related structures Neck: Normal visual inspection and Yes full ROM Respiratory: Normal respiratory effort and able to speak in complete sentences. Clear to auscultation bilaterally Cardiovascular: Regular rate and rhythm. Normal S1 and S2 GI: Normal to inspection. Soft to palpation and nontender Skin: Excessive loose skin noted Neuro: Patient oriented x3 Extremities: Normal to inspection Results Plan 1. Obesity The patient is on a GLP-1 receptor agonist for weight management, which has resulted in significant weight loss. She is planning to undergo surgery for the removal of excessive loose skin due to the weight loss. 2. Nausea The patient experiences intermittent nausea, which is managed with Zofran as needed. 3. Back Pain The patient's back pain has improved significantly following her weight loss. ON LICENSE OF [facility] Medical History Disc herniation Depression Nerve root compression Lumbago with sciatica, left side Acute bilateral low back pain with left-sided sciatica Surgical History S/P gastric sleeve procedure Hx of cholecystectomy History of cholecystectomy Family History Father No problems noted. Mother No problems noted. Maternal Grandmother No problems noted. Paternal Grandmother Thyroid disease HTN (hypertension) High cholesterol Mental health disorder Paternal Grandfather Stroke Brother No problems noted. Brother No problems noted. Sister No problems noted. Sister No problems noted. Sister No problems noted. Son No problems noted. Paternal Aunt Stroke Social History Housing: Apartment Alcohol intake: current Alcohol intake frequency: holidays/special occasions only Alcohol type: hard liquor Patient Tobacco Use Status: Never used Tobacco Substance Use Type: Marijuana service: No Current occupational status: unemployed Sexual orientation: Lesbian/Gonzalez/Homosexual Gender identity: Female Cognitive needs: No Hearing needs: No Vision needs: Yes Questionnaire Thrive Questionnaire Date Thrive assessed: 07/09/24 I am a: Patient What is your living situation today?: I have a steady place to live Within the past 12 months, did the food you bought not last and you didn't have the money to get more?: I choose not to answer this question Within the past 12 months, did you worry whether your food would run out before you got money to buy more?: I choose not to answer this question Do you have trouble paying for medicines?: I choose not to answer this question Do you have trouble getting transportation to medical appointments?: I choose not to answer this question Do you have trouble paying your heating and electricity bill?: I choose not to answer this question Do you have trouble taking care of your child, family member or friend?: I choose not to answer this question Do you have trouble with day-to-day activities such as bathing, preparing meals, shopping, managing finances, etc.?: I choose not to answer this question Are you currently unemployed and looking for a job?: I choose not to answer this question Are you interested in more education?: I choose not to answer this question Please select the resources that you would like help with: None Currently or been in a relationship where the following occur: I choose not to answer THRIVE Score: 0 ROBIN-7 AMB Questionnaire ROBIN-7 Date ROBIN - 7 assessed: 07/09/24 Source: Developed by Drs. Malik Bustos, Latoya Pedro, Sami Rock and colleagues, with an educational lior from [employer]. Physical exam (Primary Care) Vital Signs: Last Vital Signs Pulse 64 10/27/24 13:00 Resp 16 10/27/24 13:00 BP 112/72 10/27/24 13:00 Pulse Ox 98 10/27/24 13:00 Oxygen Delivery Method Room Air 10/27/24 13:00 BMI result Body Mass Index 30.0 Tobacco/Smoking Status: Tobacco use Status Tobacco use date assessed 08/14/24 10/27/24 13:05 Patient Tobacco Use Status Never used Tobacco 10/27/24 13:05 Thrive Assessment: Date of Thrive Assessment Date Thrive assessed 07/09/24 10/27/24 13:05 Currently or been in a relationship where the following occur: I choose not to answer Coding Level of Care Code Est Pt Level 3 (17705) Diagnoses Nausea R11.0 Assessment & Plan Assessment & Plan (1) Nausea: Code(s): R11.0 - Nausea Category: Medical Plan . Orders: Orders Complete Blood Count Auto Diff Today R11.0 - Nausea Comprehensive [place]. Panel Fast Today R11.0 - Nausea TSH reflex Free T4 Today R11.0 - Nausea UA CC w/rflx Micro + Cult Today R11.0 - Nausea Lipid Panel Today R11.0 - Nausea Medications: New ondansetron 4 mg PO DAILY PRN 30 tabs 0RF nausea and vomiting 30 days
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
== END 2024-10-27 13:28 | disposition home or self-care (01) ==
LOC: HO.HMCC 12:56
PROVIDERS: PCP Nurse Practitioner Family; Visit Provider Nurse Practitioner Family
DX: R11.0 Nausea (principal)

== ENCOUNTER → 2024-10-27 12:55 | Outpatient (BNVA) | payer OTHER, SELFPAY | PROVIDERS: PCP Nurse Practitioner Family; Visit Provider Nurse Practitioner Family | DX: R11.0 Nausea (principal); M54.9 Dorsalgia, unspecified; E66.9 Obesity, unspecified | CPT/HCPCS: 99212 ==

== ENCOUNTER 2025-01-29 11:12 | Outpatient (AMB) | payer OTHER, SELFPAY ==
--- NOTE | 2025-01-29 11:18 | MHC.PC.OV ---
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 Accompanied by: Self / Same As Patient Allergies dog dander Allergy (Severe, Verified 01/29/25 11:21) Sneezing meloxicam Allergy (Verified 01/29/25 11:21) passed out, dizzy, lost vision Medication List - Last Reconciled 01/29/25 by Leonard Johnson, DIRECTOR OF REVENUE CYCLE MANAGEMENT- betamethasone dipropionate 0.05% 1 appl topical DAILY PRN ibuprofen 600 mg PO TID ketoconazole 2% 1 appl topical 2XW nabumetone 500 mg PO BID PRN 30 days tirzepatide (weight loss) 15 mg (0.5 mL) subcut QWEEK valacyclovir 2,000 mg (2 x 1 gram) PO BID 1 day Tobacco use date assessed: 01/29/25 Dental Screening Dental Screen Date: 01/29/25 Did you have a dental visit in the last 12 months?: Yes Did you have a dental problem in the last 6 months where you did not have access to dental care?: No Was dental information given to patient?: Patient has dentist HPI PE r/s 11/03 HPI Details History of Present Illness The patient is a 39 year old female presenting for a physical exam. She has experienced significant weight loss since starting a GLP-1 agonist and monitoring her diet. Health Maintenance - Discussed fasting labs to be done in the near future. - Weight management: The patient has had significant weight loss with a GLP-1 agonist and diet monitoring. Social History - Diet: The patient is watching her diet. Review of Systems - Constitutional: Reports doing well. - Cardiovascular: Denies chest pain. - Respiratory: Denies shortness of breath. - Gastrointestinal: Denies abdominal pain, blood in stool, constipation, or diarrhea. - Psychiatric: Denies suicidal or homicidal ideation. Physical Exam General: Cooperative, healthy appearing, comfortable, no acute distress and well developed Orientation: Patient oriented x3 Limitations: No limitations Head: Normal to inspection Ears: Hearing grossly normal bilaterally Nose: Normal external nose present Face and sinus: Normal facial exam Eyes: Appearance normal, both eyes and all related structures Neck: Normal visual inspection and Yes full ROM Respiratory: Normal respiratory effort and able to speak in complete sentences. Clear to auscultation bilaterally Cardiovascular: Regular rate and rhythm. Normal S1 and S2 GI: Normal to inspection. Soft to palpation and nontender Skin: No rashes or lesions noted Neuro: Patient oriented x3 Extremities: Normal to inspection Results Plan 1. Adult Periodic Health Examination The patient will undergo fasting labs in the near future. Discussion Notes I encouraged the patient to get her fasting labs done in the near future. Patient Instructions - Get your fasting lab work done soon. - Continue watching your diet. [facility] Medical History Disc herniation Depression Nerve root compression Lumbago with sciatica, left side Acute bilateral low back pain with left-sided sciatica Surgical History S/P gastric sleeve procedure Hx of cholecystectomy History of cholecystectomy Family History Father No problems noted. Mother No problems noted. Maternal Grandmother No problems noted. Paternal Grandmother Thyroid disease HTN (hypertension) High cholesterol Mental health disorder Paternal Grandfather Stroke Brother No problems noted. Brother No problems noted. Sister No problems noted. Sister No problems noted. Sister No problems noted. Son No problems noted. Paternal Aunt Stroke Social History Housing: Apartment Alcohol intake: current Alcohol intake frequency: holidays/special occasions only Alcohol type: hard liquor Patient Tobacco Use Status: Never used Tobacco Substance Use Type: Marijuana service: No Current occupational status: unemployed Sexual orientation: Lesbian/Gonzalez/Homosexual Gender identity: Female Cognitive needs: No Hearing needs: No Vision needs: Yes Questionnaire PHQ-9 Over the last 2 weeks, how often have you been bothered by any of the following problems? 1. Little interest or pleasure in doing things: not at all 2. Feeling down, depressed, or hopeless: not at all 3. Trouble falling or staying asleep, or sleeping too much: not at all 4. Feeling tired or having little energy: not at all 5. Poor appetite or overeating: not at all 6. Feeling bad about yourself - or that you are a failure or have let yourself or your family down: not at all 7. Trouble concentrating on things, such as reading the newspaper or watching television: not at all 8. Moving or speaking so slowly that other people could have noticed. Or the opposite - being so fidgety or restless that you have been moving around a lot more than usual: not at all 9. Thoughts that you would be better off or of hurting yourself in some way: not at all Total score: 0 Depression Screening Interpretation: Negative Depression Screening Done: Yes 26452 - PHQ-9 Billing: Yes Source: Developed by Drs. Malik Bustos, Latoya Pedro, Sami Rock and colleagues, with an educational lior from [employer]. Thrive Questionnaire Date Thrive assessed: 07/09/24 I am a: Patient What is your living situation today?: I have a steady place to live Within the past 12 months, did the food you bought not last and you didn't have the money to get more?: I choose not to answer this question Within the past 12 months, did you worry whether your food would run out before you got money to buy more?: I choose not to answer this question Do you have trouble paying for medicines?: I choose not to answer this question Do you have trouble getting transportation to medical appointments?: I choose not to answer this question Do you have trouble paying your heating and electricity bill?: I choose not to answer this question Do you have trouble taking care of your child, family member or friend?: I choose not to answer this question Do you have trouble with day-to-day activities such as bathing, preparing meals, shopping, managing finances, etc.?: I choose not to answer this question Are you currently unemployed and looking for a job?: I choose not to answer this question Are you interested in more education?: I choose not to answer this question Please select the resources that you would like help with: None Currently or been in a relationship where the following occur: I choose not to answer THRIVE Score: 0 ROBIN-7 AMB Questionnaire ROBIN-7 Date ROBIN - 7 assessed: 01/29/25 Feeling nervous, anxious, or on edge: 0 = Not at all Not being able to stop or control worryin = Not at all Worrying too much about different things: 0 = Not at all Trouble relaxin = Not at all Being so restless that it is hard to sit still: 0 = Not at all Becoming easily annoyed or irritable: 0 = Not at all Feeling afraid as if something awful might happen: 0 = Not at all Total ROBIN-7 score (0-4 normal; 5-9 mild; 10-14 moderate; 15-21 severe): 0 Source: Developed by Drs. Malik Bustos, Latoya Pedro, Sami Rock and colleagues, with an educational ilor from [employer]. ROBIN-7 Assessment Billing ROBIN-7 Assessment Tool: ROBIN-7 Assessment 20450 Physical exam (Primary Care) Vital Signs: Last Vital Signs Pulse 90 01/29/25 11:20 Resp 16 01/29/25 11:20 BP 112/80 01/29/25 11:20 Pulse Ox 95 01/29/25 11:20 Oxygen Delivery Method Room Air 01/29/25 11:20 BMI result Body Mass Index 28.6 Tobacco/Smoking Status: Tobacco use Status Tobacco use date assessed 01/29/25 01/29/25 11:25 Patient Tobacco Use Status Never used Tobacco 01/29/25 11:20 PHQ-9: PHQ-9 Score PHQ-9: Total score 0 01/29/25 11:25 Depression Screening Interpretation: Negative Thrive Assessment: Date of Thrive Assessment Date Thrive assessed 07/09/24 01/29/25 11:20 Currently or been in a relationship where the following occur: I choose not to answer Coding Level of Care Code Est Pt Prev Care [id number](51486) Diagnoses Physical exam Z00.00 Additional Codes ROBIN-7 Assessment Billing - ROBIN-7 Assessment Tool: ROBIN-7 Assessment 98160 ([id number]) PHQ-9 - 00449 - PHQ-9 Billing: Yes ([id number]) Assessment & Plan Assessment & Plan (1) Physical exam: Code(s): Z00.00 - Encounter for general adult medical examination without abnormal findings Category: Medical Plan .
[2025-01-29 11:20] VITALS: BP 112/80; PULSE 90; RESP 16; O2SAT 95; BMI 28.6
== END 2025-01-29 13:05 | disposition home or self-care (01) ==
LOC: HO.HMCC 11:13
PROVIDERS: PCP Nurse Practitioner Family; Visit Provider Nurse Practitioner Family
DX: Z00.00 Encounter for general adult medical examination without abnormal findings (principal)

== ENCOUNTER → 2025-01-29 11:12 | Outpatient (BNVA) | payer OTHER, SELFPAY | PROVIDERS: PCP Nurse Practitioner Family; Visit Provider Nurse Practitioner Family | DX: Z00.00 Encounter for general adult medical examination without abnormal findings (principal); Z13.31 Encounter for screening for depression; Z13.39 Encounter for screening examination for other mental health and behavioral disorders | CPT/HCPCS: 96127; 99395 ==